=== PATIENT | female | born 1935 | race Caucasian/White ===

== ENCOUNTER 2020-09-03 16:27 | Emergency (ER) | payer MEDICARE, SELFPAY ==
[2020-09-03 17:14] VITALS: BP 146/72; PULSE 73; RESP 18; TEMP 36.7; O2SAT 97; BMI 27.4
--- NOTE | 2020-09-03 18:13 | XRR_ITS ---
PROCEDURE INFORMATION: Exam: XR Right Forearm Exam date and time: 09/03/2020 6:14 PM Age: 85 years old Clinical indication: Injury or trauma; Fall; Blunt trauma (contusions or hematomas); Arm, lower; Right; Additional info: Fall injury TECHNIQUE: Imaging protocol: XR Right forearm. Views: 2 views. COMPARISON: No relevant prior studies available. FINDINGS: Bones/joints: Subtle nondisplaced fracture of the distal radius. Proximal radius is intact. Ulna is intact. Soft tissues: Mild distal soft tissue swelling noted. XR/XR forearm RT 2V 36596 IMPRESSION: Subtle nondisplaced fracture of the distal radius. Please see XR wrist series from same date.
--- NOTE | 2020-09-03 18:13 | ED_ITS ---
HPI - Extremity Problem General: Chief complaint: Extremity Injury, Upper Stated complaint: FALL, INJURY TO R ARM Time Seen by Provider: 09/03/20 18:12 History of Present Illness: HPI Narrative: Patient is an 85-year-old female comes to the ED with injury after fall. Patient says on Friday evening she fell landing on her right arm and hitting her head. She says she just lost her balance and fell in her home. Denies any loss of consciousness but reports h aving a headache after fall. Her main complaint is her right wrist pain. She describes the pain as throbbing and aching and hurts whenever she rotates her right wrist. She rates it currently a 6 out of 10. She says she took 600 mg of ibuprofen several hours ago and took 1 dose of Tylenol about an hour prior to arrival. She is also complaining of having some burning pain when urinating. She reports having frequent UTIs. Associated symptoms: Deny chest pain, fever(s) or rash Review of Systems Const: Denies: fever(s), chills or fatigue Eyes: Denies: change in vision or eye discomfort ENMT: Denies: throat pain, odynophagia, nasal discharge or nasal congestion Card: Denies: chest pain, palpitations, edema, swelling of feet/ankles, dyspnea on exertion or orthopnea Resp: Denies: dyspnea, productive cough or non-productive cough GI: Denies: abdominal pain, nausea, vomiting, diarrhea, constipation or hematochezia : Reports: dysuria; Denies: flank pain or hematuria Musc: Reports: extremity pain (right wrist pain); Denies: neck pain, back pain or extremity swelling Skin/Breast: Denies: rash or new lesions Neuro: Denies: headache(s), numbness in extremities or weakness in extremities Physical Exam Const: COMMON NORMALS: no acute distress, patient oriented x3, healthy appearing and alert GENERAL APPEARANCE: cooperative and comfortable HENMT: COMMON NORMALS: normocephalic HEAD & SCALP: normocephalic MOUTH: Normal oral and palatal mucosa present THROAT: posterior oropharynx normal and uvula midline Neck/C-Spine: COMMON NORMALS: supple GENERAL: Yes normal visual inspection Resp: COMMON NORMALS: normal respiratory effort, No retractions, No use of accessory muscles and clear to auscultation bilaterally AUSCULTATION: clear to auscultation bilaterally Cardio: COMMON NORMALS: regular rate, regular rhythm, S1 normal heart sound present, S2 normal heart sound present, No gallops present (Cardio), No clicks present (Cardio), No murmurs present (Cardio) and Peripheral pulses 2+ throughout RATE: regular rate RHYTHM: regular rhythm HEART SOUNDS: S1 normal heart sound present and S2 normal heart sound present PERIPHERAL PULSES: Peripheral pulses 2+ throughout GI: COMMON NORMALS: Normal to inspection, nondistended, normoactive bowel sounds present, Soft to palpation, non-tender and no masses PALPATION: Yes Soft to palpation : COMMON NORMALS: Yes no CVA tenderness BLADDER/KIDNEY EXAM: Yes no CVA tenderness Back/Pelvis: COMMON NORMALS: no CVA tenderness Extremity: COMMON NORMALS: normal to inspection RIGHT UPPER EXTREMITY: Yes wrist Right wrist: Yes inspection (No visible deformity seen. No swelling or ecchymosis seen either.), Yes palpation (Tenderness to radial aspect of wrist.), Yes ROM (Limited external and internal rotation of wrist due to pain) and Yes neurovascular exam (Intact with with radial pulse 2+ patient) Neuro: COMMON NORMALS: patient oriented x3 and moves all extremities SENSORIUM/ORIENTATION: Yes alert Skin: COMMON NORMALS: no rashes or lesions noted GENERAL SKIN EXAM: no rashes or lesions noted and dry skin Course Vital Signs: Vital signs: Vital Signs Temperature 98.1 F 09/03/20 17:14 Pulse Rate 73 09/03/20 17:14 Respiratory Rate 18 09/03/20 17:14 Blood Pressure 146/72 09/03/20 17:14 Pulse Oximetry 97 09/03/20 17:14 MDM - Extremity (Nontraumatic) MDM Narrative: Medical decision making narrative: Patient is an 85-year-old female comes to the ED with right wrist pain after having a fall. Patient also complaining of having some dysuria. Patient's right wrist is neurovascular intact and she has some tenderness palpation over the radial aspect but no visible deformity seen. Right wrist x-ray shows distal radial head fracture. CT of head shows no acute findings. Patient diagnosed with a right wrist fracture and put in a sugar tong splint. Patient also was having some dysuria and UA showed UTI. I placed an order with case management patient to be seen by orthopedic doctor. Patient discharged home with a prescription of Bactrim and hydrocodone for pain. I told patient to keep splint on and dry and to limit use of right hand. I told her that case management will be contacting you in the next several days set up appoint with orthopedic doctor. Return ED precautions given. Patient understood and agree with plan. Lab Data: Attestation: I reviewed the patient's lab results. Labs: Lab Results 09/03/20 Range/Units 19:45 Urine Color Yellow (Yellow) Urine Appearance Sl hazy (CLEAR) Urine pH 5 (5-7) Ur Specific Gravit y 1.020 (1.005-1.030) Urine Protein Neg (Negative) Urine Glucose (UA) Norm (Normal) Urine Ketones Negative (Negative) Urine Blood Neg (Negative) Urine Nitrate Negative (Negative) Urine Bilirubin Neg (Negative) Urine Urobilinogen Norm (Negative) mg/dL Ur Leukocyte Renuka ase 2+ H (Negative) Urine RBC 0-4 H (0-2) /hpf Urine WBC >100 H (0-5) /hpf Ur Squamous Epith Cells 15-25 H (0-5) /hpf Amorphous Sediment 2+ /hpf Urine Bacteria 2+ H (NONE) /hpf Urine Mucus 1+ /hpf Imaging Data^: CT Head: Attestation: I personally reviewed and interpreted this imaging study as follows: Radiologist's impression: [address] [address] [address] Scan Report Signed Patient: Yoselin Lee Unit #: [id number] : 1935 Age/Sex: 85 / F ADM Date: 09/03/20 Loc: ER Room/Bed: Attending Dr: Ordering Provider/Ordering MD: Max Lopez Date of Service: 09/03/20 Procedure(s): CT head wo con* [id number] Accession Number(s): [id number] Report Number: [id number] PROCEDURE INFORMATION: Exam: CT Head Without Contrast Exam date and time: 09/03/2020 6:19 PM Age: 85 years old Clinical indication: Injury or trauma; Blunt trauma (contusions or hematomas); Without loss of consciousness; Patient HX: C/O backwards fall from standing 2 days ago denies loc; Additional info: Fall and hit head TECHNIQUE: Imaging protocol: Computed tomography of the head without contrast. Radiation optimization: All CT scans at this facility use at least one of these dose optimization techniques: automated exposure control; mA and/or kV adjustment per patient size (includes targeted exams where dose is matched to clinical indication); or iterative reconstruction. COMPARISON: No relevant prior studies available. RADIATION DOSE METRICS: Total DLP (mGy-cm): 724.94 FINDINGS: Brain: Moderate parenchymal volume loss noted. 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 No intracranial hemorrhage noted. No parenchymal edema identified. Cerebral ventricles: The ventricles are proportional to the sulci. No hydrocephalus is noted. Bones/joints: No fracture or other acute osseous abnormality. Paranasal sinuses: The paranasal sinuses, as demonstrated, appear clear. Mastoid air cells: The mastoid air cells are clear bilaterally. Soft tissues: The soft tissues appear unremarkable. CT/CT head wo con* [id number] IMPRESSION: No acute intracranial abnormality demonstrated. Radiation Dose CTDIVOL = (mGy): DLP = 724.94 (mGy-cm) Dictated By: Fred Aldana MD Signed By: Fred Aldana MD Signed Date/Time: 09/03/201905 DD/ 03 Xray Ortho: Attestation: I personally reviewed and interpreted this imaging study as follows: Radiologist's impression: [address] [address] XRay Report Signed Patient: Yoselin Lee Unit #: [id number] : 1935 Age/Sex: 85 / F ADM Date: 09/03/20 Loc: ER Room/Bed: Attending Dr: Ordering Provider/Ordering MD: Max Lopez Date of Service: 09/03/20 Procedure(s): XR wrist RT min 3V* 24565 Accession Number(s): [id number] Report Number: [id number] PROCEDURE INFORMATION: Exam: XR Right Wrist Exam date and time: 09/03/2020 6:14 PM Age: 85 years old Clinical indication: Injury or trauma; Fall; Blunt trauma (contusions or hematomas); Wrist; Right; Additional info: Fall injury TECHNIQUE: Imaging protocol: XR Right wrist. Views: 3 or more views. COMPARISON: No relevant prior studies available. FINDINGS: Bones/joints: Acute nondisplaced fracture of the distal radius demonstrated on the AP and lateral views. Degenerative changes of the 1st carpometacarpal joint. No widening of the joint spaces. Distal ulna is intact. Soft tissues: Soft tissue swelling is noted. Vasculature: There are atherosclerotic calcifications demonstrated. XR/XR wrist RT min 3V* [id number] IMPRESSION: 1. Acute nondisplaced fracture of the distal radius. 2. Soft tissue swelling is noted. Dictated By: Fred Aldana MD Signed By: Fred Aldana MD Signed Date/Time: 09/03/201919 DD/ 18 Discharge Plan Discharge Patient Disposition: Home Clinical Impression: Fracture of wrist Qualifiers: Encounter type: initial encounter Fracture type: closed Laterality: right Qualified Code(s): S62.101A - Fracture of unspecified carpal bone, right wrist, initial encounter for closed fracture Fall as cause of accidental injury at home as place of occurrence Qualifiers: Encounter type: initial encounter Qualified Code(s): W19.XXXA - Unspecified fall, initial encounter UTI (urinary tract infection) Qualifiers: Urinary tract infection type: acute cystitis Hematuria presence: with hematuria Qualified Code(s): N30.01 - Acute cystitis with hematuria Condition: Stable Prescriptions: New sulfamethoxazole-trimethoprim 800-160 mg tablet 1 tab PO BID 7 Days Qty: 14 RF: 0 Discharge Orders: Discharge ED (Routine); Ordered 09/03/20 Ordered By: Max Lopez Referrals: Austin Duke DO [Primary Care Provider] - Discharge Diet: Regular Discharge Activity: Limit activity as instructed Patient Instructions: Wrist Fracture in Adults (ED), Urinary Tract Infection in Women (ED), Opioid Safety Activity Restrictions/Additional Instructions: Follow-up with medical provider as directed. Case management will be contacting you in the next several days set up appoint with orthopedic doctor. Keep splint on and dry and limit activity with right arm. Take medications as prescribed. Return to the ER or your medical provider if condition worsens. Please read and understand discharge instructions. If any questions, please ask. Coding Level of Care Code ED Coding Quality Analyst for Jana Fwd Exam Comprehensive
--- NOTE | 2020-09-03 18:18 | CTR_ITS ---
PROCEDURE INFORMATION: Exam: CT Head Without Contrast Exam date and time: 09/03/2020 6:19 PM Age: 85 years old Clinical indication: Injury or trauma; Blunt trauma (contusions or hematomas); Without loss of consciousness; Patient HX: C/O backwards fall from standing 2 days ago denies loc; Additional info: Fall and hit head TECHNIQUE: Imaging protocol: Computed tomography of the head without contrast. Radiation optimization: All CT scans at this facility use at least one of these dose optimization techniques: automated exposure control; mA and/or kV adjustment per patient size (includes targeted exams where dose is matched to clinical indication); or iterative reconstruction. COMPARISON: No relevant prior studies available. RADIATION DOSE METRICS: Total DLP (mGy-cm): 724.94 FINDINGS: Brain: Moderate parenchymal volume loss noted. 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 No intracranial hemorrhage noted. No parenchymal edema identified. Cerebral ventricles: The ventricles are proportional to the sulci. No hydrocephalus is noted. Bones/joints: No fracture or other acute osseous abnormality. Paranasal sinuses: The paranasal sinuses, as demonstrated, appear clear. Mastoid air cells: The mastoid air cells are clear bilaterally. Soft tissues: The soft tissues appear unremarkable. CT/CT head wo con* [id number] IMPRESSION: No acute intracranial abnormality demonstrated. Radiation Dose CTDIVOL = (mGy): DLP = 724.94 (mGy-cm)
[2020-09-03] MEDS: HYDROcodone-acetaminophen 5-325 mg Tablet 1 TAB PO (18:29)
[2020-09-03 20:29] LABS: Bilirubin Urine Neg (Negative); Blood Urine Neg (Negative); Glucose Urine UA Norm (Normal); Ketones Urine Negative (Negative); Leukocyte Esterase Urine 2+ (Negative); Nitrate Urine Negative (Negative); Protein Urine Neg (Negative); Urine Appearance SL Hazy (CLEAR); Urine Color Yellow (Yellow); Urobilinogen Urine Norm (Negative); pH Urine 5 (5-7)
[2020-09-03 20:30] LABS: RBC Urine 0-4 /hpf (0-2); Squamous Epithelial Cell Urine 15-25 /hpf (0-5); WBC Urine >100 /hpf (0-5)
[2020-09-03 20:31] LABS: Add Urine Culture? No; Amorphous Sediment Urine 2+ /hpf; Bacteria Urine 2+ /hpf; Mucus Urine 1+ /hpf
[2020-09-03] MEDS: HYDROcodone-acetaminophen 5-325 mg Tablet 2 TAB PO (20:51)
[2020-09-03] MEDS: sulfamethoxazole-trimeth DS 160-800 mg Tablet 1 TAB PO (20:51)
--- NOTE | 2020-09-04 09:55 | DCPLANNER ---
manager shop had message to schedule a follow up appointment for patient with orhto. manager shop called the ortho clinic, spoke with Barbie, gave clinic patients information. manager shop was told that patients information would be printed and reviewed. Clinic will call patient with appointment information.
--- NOTE | 2020-09-06 07:44 | DCPLANNER ---
Patient has a follow up appointment scheduled for , September 07, 2020 at 3:[address] Delgado at [facility]. Clinic will call patient with appointment information.
--- NOTE | 2020-09-06 11:20 | PC.NURSE ---
sugar tong splint applied per Bean Cevallos RN. Patient had good circulatory and capillary refill after placement of splint.
--- NOTE | 2020-10-20 08:12 | DCPLANNER ---
Patient had a follow up appointment scheduled for 09.07.[address] Delgado at [facility] - patient did attend appointment.
== END 2020-09-03 20:56 | disposition home or self-care (01) ==
PROVIDERS: Emergency Provider Physician Assistant; PCP Family Medicine
DX: S52.501A Unspecified fracture of the lower end of right radius, initial encounter for closed fracture (principal); N30.01 Acute cystitis with hematuria; W19.XXXA Unspecified fall, initial encounter
CPT/HCPCS: 29125; 70450; 73090; 73110; 81001; 99283

== ENCOUNTER → 2020-09-07 15:42 | Outpatient (BNVA) | payer MEDICARE, SELFPAY | PROVIDERS: PCP Family Medicine; Referring Provider Physician Assistant; Visit Provider Orthopaedic Surgery | DX: S62.101A Fracture of unspecified carpal bone, right wrist, initial encounter for closed fracture (principal); S52.501A Unspecified fracture of the lower end of right radius, initial encounter for closed fracture; W19.XXXA Unspecified fall, initial encounter | CPT/HCPCS: 73110 ==

== ENCOUNTER 2020-09-28 07:46 | Outpatient (CLI) | payer MEDICARE, SELFPAY ==
--- NOTE | 2020-09-28 07:56 | US_ITS ---
WS: [id number] Thyroid ultrasound, 09/28/2020 Clinical Data: THYROID NODULE Comparison: None. Findings: The right lobe of thyroid measures 3.4 cm x 1.5 cm x 1.8 cm. There are 2 small nodules in the right l obe, one measuring 0.28 x 0.34 x 0.4 cm and the other 0.27 x 0.42 x 0.47 cm. The left lobe measures 5.0 cm x 1.3 cm x 1.6 cm. There are 2 complex nodules with mixed echotexture i n the left lobe, one measuring 0.82 x 1.36 x 1.92 cm and the other 0.97 x 0.99 x 1.04 cm The isthmus measured 0.3 mm. The echotexture of the right lobe is uniform with 2 small nodules. There is mixed echotexture on the left with 2 large nodules. US/US thyroid 13544 Impression: 1. Multinodular goiter. 2. 2 small nodules on the right lobe. 3. 2 large nodules on the left lobe.
== END 2020-09-28 07:47 | disposition home or self-care (01) ==
LOC: RAD 07:48
PROVIDERS: PCP Family Medicine; Visit Provider Family Medicine
DX: E04.2 Nontoxic multinodular goiter (principal)
CPT/HCPCS: 73110; 76536

== ENCOUNTER 2020-10-06 18:00 | Emergency (ER) | payer MEDICARE, SELFPAY ==
--- NOTE | 2020-10-06 18:04 | XRR_ITS ---
PROCEDURE INFORMATION: Exam: XR Left Knee Exam date and time: 10/06/2020 6:18 PM Age: 85 years old Clinical indication: Pain; Knee; Left; Additional info: Injury TECHNIQUE: Imaging protocol: XR Left knee. Views: 3 views. COMPARISON: No relevant prior studies available. FINDINGS: There is osteopenia. No fractures are identified. The joint spaces are well maintained. There is some spurring along the patella. There is a small joint effusion. Vascular calcifications are noted. XR/XR knee LT 3V* [id number] IMPRESSION: 1. No evidence of fracture. 2. Small joint effusion.
[2020-10-06 18:19] VITALS: BP 133/66; PULSE 74; RESP 16; TEMP 36.5; O2SAT 96; BMI 27.4
--- NOTE | 2020-10-06 18:35 | W.ED.LOWEXIN ---
HPI - Extremity Injury (Lower) General: Chief Complaint: Extremity Injury, Lower Stated Complaint: LEFT KNEE WENT OUT Time Seen by Provider: 10/06/20 18:25 Source: patient Mode of arrival: wheelchair Limitations: no limitations History of Present Illness: HPI Narrative: Patient is an 85-year-old female who presents to ED today with a complaint of left knee pain. Patient tells me she was walking and states the knee buckled causing her to almost fall. She states she was still able to ambulate on the extremity but only by keeping it straight and not bending the knee. She denies any other injuries at this time. Upon my initial assessment patient tells me the knee feels better and she is now able to bend it without any discomfort. She tells me after the initial buckling she felt like her kneecap was dislocated but that it must of popped back in . complaint: knee injury Onset (ago): hour(s) Place: home Severity: mild Associated symptoms: Reports no associated symptoms Other symptoms: none Review of Systems Musc: Reports: joint pain (L knee); Denies: extremity pain, extremity swelling, joint swelling or limited range of motion Neuro: Denies: numbness in extremities or sensory changes Physical Exam Const: COMMON NORMALS: no acute distress, average body habitus, patient oriented x3, no limitations, healthy appearing, alert and well nourished GENERAL APPEARANCE: cooperative ORIENTATION/CONSCIOUSNESS: Yes awake, Yes oriented to person, Yes oriented to place and Yes oriented to time HENMT: COMMON NORMALS: normocephalic and atraumatic HEAD & SCALP: normocephalic and atraumatic Extremity: COMMON NORMALS: full ROM NARRATIVE EXTREMITY EXAM: pt has full painless ROM of her L knee; there is no obvious swelling; no patellar dislocation GENERAL: Yes normal exam except as noted Neuro: COMMON NORMALS: patient oriented x3, moves all extremities, no focal motor deficits and no sensory deficits noted SENSORIUM/ORIENTATION: Yes alert, Yes oriented to person, Yes oriented to place and Yes oriented to time Skin: COMMON NORMALS: no rashes or lesions noted GENERAL SKIN EXAM: no rashes or lesions noted TRAUMA: no lacerations or abrasions Course Vital Signs: Vital signs: Vital Signs Temperature 97.7 F 10/06/20 18:19 Pulse Rate 74 10/06/20 18:19 Respiratory Rate 16 10/06/20 18:19 Blood Pressure 133/66 10/06/20 18:19 Pulse Oximetry 96 10/06/20 18:19 MDM - Extremity Injury (Lower) MDM Narrative: Medical decision making narrative: Patient was able to ambulate in the ED with a walker. She states she has a walker and cane at home she will use. Recommend followup with PCP if knee continues to bother her so they can evaluate further. Imaging Data^: XR L knee: Radiologist's impression: [address] [address] XRay Report Signed Patient: Yoselin Lee Unit #: [id number] : 1935 Age/Sex: 85 / F ADM Date: 10/06/20 Loc: ER Room/Bed: Attending Dr: Ordering Provider/Ordering MD: Katherine Scott MD Date of Service: 10/06/20 Procedure(s): XR knee LT 3V* [id number] Accession Number(s): [id number] Report Number: [id number] PROCEDURE INFORMATION: Exam: XR Left Knee Exam date and time: 10/06/2020 6:18 PM Age: 85 years old Clinical indication: Pain; Knee; Left; Additional info: Injury TECHNIQUE: Imaging protocol: XR Left knee. Views: 3 views. COMPARISON: No relevant prior studies available. FINDINGS: There is osteopenia. No fractures are identified. The joint spaces are well maintained. There is some spurring along the patella. There is a small joint effusion. Vascular calcifications are noted. XR/XR knee LT 3V* [id number] IMPRESSION: 1. No evidence of fracture. 2. Small joint effusion. Dictated By: Isidro Terrell MD Signed By: Isidro Terrell MD Signed Date/Time: 10/06/201902 DD/ 00 Discharge Plan Discharge Patient Disposition: Home Clinical Impression: Knee buckling Qualifiers: Laterality: left Qualified Code(s): M25.362 - Other instability, left knee Condition: Stable Prescriptions: No Action (DME) Thumb spica splint See Rx Instructions .Route .MEDSULY Qty: 1 RF: 0 Discharge Orders: Discharge ED (Routine); Ordered 10/06/20 Ordered By: Flakita Reina Referrals: Austin Duke, DO [Primary Care Provider] - Activity Restrictions/Additional Instructions: As we discussed keep the RODERICK wrap on the knee joint to help stabilize. You need to walk with a walker or a cane at all times to help prevent falls in case the knee janna again. Your x-ray was negative here however I would like you to follow-up with primary care next week so they can further evaluate. If knee continues to buckle you may require a MRI to evaluate further. Coding Level of Care Code ED Barrel Rifler Broach for Jana Madison
--- NOTE | 2020-12-11 07:59 | DCPLANNER ---
Patient had a follow up appointment 10.19.[address] Delgado at ortho - patient did attend appointment.
== END 2020-10-06 19:13 | disposition home or self-care (01) ==
PROVIDERS: Emergency Provider Physician Assistant; PCP Family Medicine
DX: M25.362 Other instability, left knee (principal)
CPT/HCPCS: 73562; 99283

== ENCOUNTER 2020-10-06 21:15 | Emergency (ER) | payer MEDICARE, SELFPAY ==
[2020-10-06 21:06] VITALS: BP 153/77; PULSE 60; RESP 16; TEMP 36.8; O2SAT 97; BMI 28.3
--- NOTE | 2020-10-06 21:15 | ED_ITS ---
HPI - Extremity Problem General: Chief complaint: Extremity Injury, Lower Stated complaint: KNEE PAIN Source: patient Mode of arrival: EMS Limitations: no limitations History of Present Illness: HPI Narrative: Patient is an 85-year-old female who returns to the ED today again for complaints of left knee pain. Patient was seen just a few hours ago by myself. Following the end of her visit she was able to ambulate in the ED with a walker without difficulty. She had stated her pain was much improved. Her XR was normal. She states when she got home she tried to get out of the vehicle and felt like her knee dislocated and buckled again. She did not fall. She is currently complaining of anterior knee pain and is not able to bend the knee. MD Complaint: joint pain Pain Consistency: intermittent Location: left and lower extremity Radiation: none Relieving factors: immobilization Exacerbating factors: range of motion, weight bearing and walking Associated symptoms: Reports no associated symptoms Review of Systems Musc: Reports: joint pain (L knee) and limited range of motion; Denies: extremity pain, extremity swelling or joint swelling Neuro: Denies: numbness in extremities, weakness in extremities or sensory changes Physical Exam Const: COMMON NORMALS: no acute distress, average body habitus, patient oriented x3, no limitations, healthy appearing, alert and well nourished GENERAL APPEARANCE: cooperative Extremity: OTHER: TTP anterior/medial L knee; again no swelling appreciated; patella does not appear dislocated; she has severe pain with trying to bend her knee; no redness/warmth present Neuro: COMMON NORMALS: patient oriented x3 SENSORIUM/ORIENTATION: Yes alert Course Vital Signs: Vital signs: Vital Signs Temperature 98.3 F 10/06/20 21:06 Pulse Rate 64 10/07/20 00:58 Respiratory Rate 18 10/07/20 00:58 Blood Pressure 153/77 10/06/20 21:06 Pulse Oximetry 98 10/07/20 00:58 MDM - Extremity (Nontraumatic) MDM Narrative: Medical decision making narrative: Again XR is negative. Spoke about possibility of MRI as an outpt to evaluate for joint laxity/internal injury. Will place in knee immobilizer and have her follow up with orthopedics. Family is very concerned regarding patient taking care of herself as she lives alone. I have placed her in a knee immobilizer and we were able to ambulate her here with a walker however this was difficult. I too feel patient cannot care for herself secondary to the pain she is having now compared to her previous visit. She has not had any recent injury or trauma. I do not think obtaining CT imaging would change anything. Granddaughter, daughter, and aunt are in the room. Discussed possibly admitting patient for a pain control and inability to care for self but stated they would unlikely keep her for 3 midnights thus insurance would not pay for a snf stay following. Patient and family agree this would most likely not be beneficial. Daughter and aunt have stairs in their home and they do not think they can get her up stairs. Granddaughter states her home does not have stairs and is wheelchair accessible. Family is in agreement that patient will stay with granddaughter. We will have HOME bring a walker and bedside commode. Plan is for patient to follow-up with orthopedics or PCP-whichever when she can get into first. She does have an appoint with Dr. Delgado next week. She states she has pain medications at home she can use. Imaging Data^: XR L knee: Radiologist's impression: [facility] [place] [address] XRay Report Signed Patient: Yoselin Lee Unit #: [id number] : 1935 Acct#:[id number] Age/Sex: 85 / F ADM Date: 10/06/20 Loc: ER Room/Bed: Attending Dr: Ordering Provider/Ordering MD: Flakita Reina Date of Service: 10/06/20 Procedure(s): XR knee LT 3V* [id number] Accession Number(s): [id number] Report Number: [id number] PROCEDURE INFORMATION: Exam: XR Left Knee Exam date and time: 10/06/2020 9:30 PM Age: 85 years old Clinical indication: Patient HX: C/O pain left knee severe at patella. Cannot bend; Additional info: Injury TECHNIQUE: Imaging protocol: XR Left knee. Views: 3 views. COMPARISON: CR (LOW EXM, ) 10/06/2020 6:30 PM FINDINGS: Again, no fractures are identified. There is a small joint effusion. The patellar tendon appears intact. There is no acute bony destruction. Vascular calcifications are noted. XR/XR knee LT 3V* [id number] IMPRESSION: No evidence of fracture. Small joint effusion. One may wish to consider CT in further evaluation. Dictated By: Isidro Terrell MD Signed By: Isidro Terrell MD Signed Date/Time: 10/06/202203 DD/ 01 Discharge Plan Discharge Patient Disposition: Home Clinical Impression: Acute pain of left knee Condition: Stable Prescriptions: No Action (DME) Thumb spica splint See Rx Instructions .Route .MEDSUPPLY Qty: 1 RF: 0 Discharge Orders: Discharge ED (Routine); Ordered 10/06/20 Ordered By: Flakita Reina Referrals: Austin Duke DO [Primary Care Provider] - Coding Level of Care Code ED Control Electrician for Chg Fwd Exam Problem Focused
[2020-10-06 21:19] VITALS: RESP 15; O2SAT 96
[2020-10-06] MEDS: morphine 4 mg/mL SDV 1 mL IM ×2 (21:19→23:58)
--- NOTE | 2020-10-06 21:29 | XRR_ITS ---
PROCEDURE INFORMATION: Exam: XR Left Knee Exam date and time: 10/06/2020 9:30 PM Age: 85 years old Clinical indication: Patient HX: C/O pain left knee severe at patella. Cannot bend; Additional info: Injury TECHNIQUE: Imaging protocol: XR Left knee. Views: 3 views. COMPARISON: CR (LOW EXM, ) 10/06/2020 6:30 PM FINDINGS: Again, no fractures are identified. There is a small joint effusion. The patellar tendon appears intact. There is no acute bony destruction. Vascular calcifications are noted. XR/XR knee LT 3V* [id number] IMPRESSION: No evidence of fracture. Small joint effusion. One may wish to consider CT in further evaluation.
[2020-10-06 23:58] VITALS: RESP 20
[2020-10-06] MEDS: dexamethasone 10 mg/mL INJ 8 MG IM (23:59)
[2020-10-07 00:44] VITALS: PULSE 64; RESP 18; O2SAT 98
[2020-10-07 00:58] VITALS: PULSE 64; RESP 18; O2SAT 98
--- NOTE | 2020-10-09 09:05 | DCPLANNER ---
advertising account manager had message to schedule a follow up appointment for patient with ortho for knee pain. advertising account manager called the ortho clinic, spoke with Yasemin, gave clinic patients information. advertising account manager was told that patients information would be printed and reviewed. Clinic will call patient with appointment information.
--- NOTE | 2020-10-10 07:51 | DCPLANNER ---
Patient has a follow up appointment scheduled for September at 2:[address] Delgado at [facility]. Clinic will call patient with appointment information.
== END 2020-10-07 00:59 | disposition home or self-care (01) ==
PROVIDERS: Emergency Provider Physician Assistant; PCP Family Medicine
DX: M25.562 Pain in left knee (principal)
CPT/HCPCS: 29530; 73562; 96372; 99283; J1100; J2270

== ENCOUNTER → 2020-10-19 15:25 | Outpatient (BNVA) | payer MEDICARE, SELFPAY | PROVIDERS: PCP Family Medicine; Visit Provider Orthopaedic Surgery | DX: S62.101A Fracture of unspecified carpal bone, right wrist, initial encounter for closed fracture (principal); X58.XXXA Exposure to other specified factors, initial encounter | CPT/HCPCS: 73110 ==

== ENCOUNTER → 2021-02-01 11:42 | Outpatient (BNVA) | payer MEDICARE, SELFPAY | PROVIDERS: PCP Family Medicine; Visit Provider Specialist | DX: M25.562 Pain in left knee (principal) | CPT/HCPCS: 73560; 73565 ==

== ENCOUNTER → 2021-09-12 14:16 | Outpatient (BNVA) | payer MEDICARE, SELFPAY | PROVIDERS: PCP Family Medicine; Visit Provider Specialist | DX: V89.2XXA Person injured in unspecified motor-vehicle accident, traffic, initial encounter (principal); S83.412A Sprain of medial collateral ligament of left knee, initial encounter; M17.12 Unilateral primary osteoarthritis, left knee | CPT/HCPCS: 73560; 73565; 99213 ==

== ENCOUNTER 2021-12-17 12:00 | Emergency (ER) | payer MEDICARE, SELFPAY ==
[2021-12-17] VITALS (14 sets, daily range): BP systolic 126–153; BP diastolic 60–93; PULSE 65–83; RESP 16–22; TEMP 36.8; O2SAT 89–99; BMI 28.3
--- NOTE | 2021-12-17 14:53 | ED_ITS ---
Documented by User: José Antonio Carnes DO 12/18/21 06:19 HPI - Abdominal Pain General: Chief Complaint: Abdominal Pain Stated Complaint: right side abd/back pain Time Seen by Provider: 12/17/21 14:40 Source: patient Mode of arrival: ambulatory Limitations: no limitations History of Present Illness: 86 yo female presents emergency room with complaint of right-sided flank pain into the right lower quadrant pain is progressively worsened. She not had any hematuria she has had a little mild dysuria's been accompanied by pain and nausea. She states she also been very constipated lately. She not had any fever sweats or chills. MD elicited complaint: abdominal pain Pertinent past history: none Onset (ago): hour(s) Quality: cramping Radiation: none Exacerbating factors: nothing Relieving factors: nothing Associated Symptoms: Denies anorexia, belching, bloating, change in bowel habits, change in stool character, chills, coffee ground emesis, constipation, GI cramping, diarrhea, dyspepsia, dysuria, excessive flatus, fever(s), heartburn, hematochezia, hematuria, hematemesis, fecal incontinence, loose stools, melena, nausea, poor appetite, syncope and vomiting Review of Systems Const: Reports: fatigue; Denies: fever(s) or chills ENMT: Reports: ear or mastoid pain; Denies: throat pain, ear discharge, nasal discharge or nasal congestion Card: Denies: syncope Resp: Denies: dyspnea, productive cough or non-productive cough GI: Denies: nausea, vomiting, hematemesis, coffee ground emesis, heartburn, diarrhea, constipation, bloating, GI cramping, belching, excessive flatus, fecal incontinence, change in bowel habits, change in stool character, hematochezia or melena : Reports: flank pain; Denies: difficulty voiding, dysuria, urinary frequency, urinary urgency or hematuria Musc: Reports: back pain Skin/Breast: Denies: rash or pruritus [facility] ED PFSH: Medical History (Updated 12/18/21 @ 06:19 by José Antonio Carnes DO) Osteoarthritis Right wrist fracture Social History (Updated 12/18/21 @ 06:16 by José Antonio Carnes DO) Smoking and tobacco status: never smoked Alcohol intake: never Physical Exam Const: COMMON NORMALS: no acute distress GENERAL APPEARANCE: cooperative and comfortable ORIENTATION/CONSCIOUSNESS: Yes awake, Yes oriented to person, Yes oriented to place and Yes oriented to time HENMT: COMMON NORMALS: normocephalic, atraumatic and hearing grossly normal bilaterally HEAD & SCALP: normocephalic and atraumatic Neck/C-Spine: COMMON NORMALS: no JVD Resp: COMMON NORMALS: normal respiratory effort, No retractions, No use of accessory muscles and clear to auscultation bilaterally AUSCULTATION: clear to auscultation bilaterally Cardio: COMMON NORMALS: no JVD, regular rate, regular rhythm and No murmurs present (Cardio) RATE: regular rate RHYTHM: regular rhythm GI: COMMON NORMALS: No hepatosplenomegaly present AUSCULTATION: Yes normoactive bowel sounds PALPATION: Yes Tenderness to palpation present (GI) Details: RLQ, No Guarding due to palpation present (GI) and Yes No hepatosplenomegaly present : BLADDER/KIDNEY EXAM: Yes CVA tenderness Back/Pelvis: GENERAL BACK: Yes CVA tenderness CVA tenderness: right Extremity: COMMON NORMALS: normal to inspection, capillary refill normal, no clubbing, cyanosis or edema, no calf tenderness and no pedal edema Neuro: SENSORIUM/ORIENTATION: Yes oriented to person, Yes oriented to place and Yes oriented to time Skin: COMMON NORMALS: no rashes or lesions noted GENERAL SKIN EXAM: no rashes or lesions noted Course Vital Signs: Vital signs: Vital Signs Temperature 98.2 F 12/17/21 12:36 Pulse Rate 83 12/17/21 21:07 Respiratory Rate 22 H 12/17/21 19:58 Blood Pressure 136/68 12/17/21 21:07 Pulse Oximetry 96 12/17/21 21:07 MDM - Abdominal Pain Medical Decision Making Labs completed and CT completed at change of shift patient is going to need to be transferred she has an obstructive mass in the left ureter by CT read either a clot or a soft tissue mass. We do not have urology services available at this time Dr. Scott will assume care and make arrangements for transfer to definitive care Patient presents here with a cystitis patient CT also shows ureteral obstruction with hydronephrosis they did not see a stone. Did speak to urology at [place] and will transfer there for higher level of care for urologic capability. Patient has no signs of sepsis here. Medical Records I reviewed the patient's medical records. Lab Data I reviewed the patient's lab results. : 12/17/21 15:10 12/17/21 15:10 Labs/Radiology: Radiology Impressions Abdomen/Pelvis CT 12/17/21 14:59 IMPRESSION: 1. Moderate-severe right hydronephrosis with columning of the ureter to the mid pelvis. There is hyperdensity in the distal obstructed ureter but no visible calculus. This could represent a blood clot or an obstructing neoplastic process. Follow-up with a retrograde pyelogram is recommended. 2. 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 For patients without history of cancer, recommend follow-up MRI in 6-12 months. With history of cancer, recommend evaluation with non-emergent PET vs. MRI vs. biopsy. 3. Cholelithiasis. Laboratory Results WBC 9.8 10^3/uL (4.0-10.0) 12/17/21 15:10 RBC 4.63 10^6/uL (4.1-5.3) 12/17/21 15:10 Hgb 13.8 g/dL (11.5-15.3) 12/17/21 15:10 Hct 43.4 % (37.0-47.0) 12/17/21 15:10 MCV 93.7 fl (81-99) 12/17/21 15:10 MCH 29.8 pg (28.0-34.0) 12/17/21 15:10 MCHC 31.8 g/dL (30.0-36.0) 12/17/21 15:10 RDW 13.1 % (12.1-15.1) 12/17/21 15:10 Plt Count 148 10^3/cmm (130-400) 12/17/21 15:10 MPV 10.8 fL (7.4-10.4) H 12/17/21 15:10 Neut % (Auto) 82.9 % 12/17/21 15:10 Lymph % (Auto) 8.4 % 12/17/21 15:10 [place] % (Auto) 7.4 % 12/17/21 15:10 Eos % (Auto) 0.3 % 12/17/21 15:10 Baso % (Auto) 0.6 % 12/17/21 15:10 Neut # (Auto) 8.14 10^3/uL (1.8-7.7) H 12/17/21 15:10 Lymph # (Auto) 0.8 10^3/uL (0.8-4.8) 12/17/21 15:10 [place] # (Auto) 0.7 10^3/uL (0.2-0.9) 12/17/21 15:10 Eos # (Auto) 0.0 10^3/uL (0.0-0.8) 12/17/21 15:10 Baso # (Auto) 0.1 10^3/uL (0.0-0.1) 12/17/21 15:10 Nucleated RBC % (auto) 0 % 12/17/21 15:10 Nucleated RBCs # 0.0 /100WBC 12/17/21 15:10 Sodium 136 mmol/L (136-145) 12/17/21 15:10 Potassium 4.5 mmol/L (3.5-5.1) 12/17/21 15:10 Chloride 101 mmol/L (98-107) 12/17/21 15:10 Carbon Dioxide 24 mmol/L (22-29) 12/17/21 15:10 Anion Gap 15.5 (5-19) 12/17/21 15:10 BUN 13 mg/dL (8-23) 12/17/21 15:10 Creatinine 0.4 mg/dL (0.5-0.9) L 12/17/21 15:10 GFR Calculation Not Reportable 12/17/21 15:10 Glucose 129 mg/dL (65-115) H 12/17/21 15:10 Calculated Osmolality 284 mOsm/kg (285-295) L 12/17/21 15:10 Calcium 8.8 mg/dL (8.5-10.5) 12/17/21 15:10 Total Bilirubin 0.3 mg/dL (0.15-1.2) 12/17/21 15:10 AST 18 U/L (0-32) 12/17/21 15:10 ALT 11 U/L (0-33) 12/17/21 15:10 Alkaline Phosphatase 88 IU/L (35-105) 12/17/21 15:10 Total Protein 6.2 g/dL (6.6-8.7) L 12/17/21 15:10 Albumin 4.1 g/dL (3.5-5.2) 12/17/21 15:10 Globulin 2.1 g/dL (1.3-4.6) 12/17/21 15:10 Lipase 44 U/L (13-60) 12/17/21 15:10 Urine Color Yellow (Yellow) 12/17/21 14:40 Urine Appearance Cloudy (CLEAR) 12/17/21 14:40 Urine pH 5 (5-7) 12/17/21 14:40 Ur Specific [place] 1.015 (1.005-1.030) 12/17/21 14:40 Urine Protein Neg (Negative) 12/17/21 14:40 Urine Glucose (UA) Norm (Normal) 12/17/21 14:40 Urine Ketones Negative (Negative) 12/17/21 14:40 Urine Blood 2+ (Negative) H 12/17/21 14:40 Urine Nitrate Positive (Negative) H 12/17/21 14:40 Urine Bilirubin Neg (Negative) 12/17/21 14:40 Urine Urobilinogen Norm mg/dL (Negative) 12/17/21 14:40 Ur Leukocyte Esterase 2+ (Negative) H 12/17/21 14:40 Urine RBC 15-25 /hpf (0-2) H 12/17/21 14:40 Urine WBC >100 /hpf (0-5) H 12/17/21 14:40 Ur Squamous Epith Cells 5-10 /hpf (0-5) H 12/17/21 14:40 Amorphous Sediment Not Reportable 12/17/21 14:40 Urine Bacteria 2+ /hpf (NONE) H 12/17/21 14:40 Discharge Plan Discharge Patient Disposition: Xfer Short-Term Hosp Clinical Impression: Acute cystitis, Hydronephrosis, Intrinsic ureteral obstruction Condition: Stable Referrals: Austin Duke, [Primary Care Provider] - Coding Level of Care Code ED Asset Administrator for Chg Fwd Documented by User: Katherine Scott MD 12/17/21 18:59 HPI - Abdominal Pain General: Chief Complaint: Abdominal Pain Stated Complaint: right side abd/back pain Time Seen by Provider: 12/17/21 14:40 PFS ED PFSH: Medical History (Updated 12/18/21 @ 06:19 by José Antonio Carnes DO) Osteoarthritis Right wrist fracture Social History (Updated 12/18/21 @ 06:16 by José Antonio Carnes DO) Smoking and tobacco status: never smoked Alcohol intake: never Course Vital Signs: Vital signs: Vital Signs Temperature 98.2 F 12/17/21 12:36 Pulse Rate 83 12/17/21 21:07 Respiratory Rate 22 H 12/17/21 19:58 Blood Pressure 136/68 12/17/21 21:07 Pulse Oximetry 96 12/17/21 21:07 MDM - Abdominal Pain Medical Decision Making Patient presents here with a cystitis patient CT also shows ureteral obstruction with hydronephrosis they did not see a stone. Did speak to urology at [place] and will transfer there for higher level of care for urologic capability. Patient has no signs of sepsis here. Lab Data : 12/17/21 15:10 12/17/21 15:10 Labs/Radiology: Radiology Impressions Abdomen/Pelvis CT 12/17/21 14:59 IMPRESSION: 1. Moderate-severe right hydronephrosis with columning of the ureter to the mid pelvis. There is hyperdensity in the distal obstructed ureter but no visible calculus. This could represent a blood clot or an obstructing neoplastic process. Follow-up with a retrograde pyelogram is recommended. 2. 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 For patients without history of cancer, recommend follow-up MRI in 6-12 months. With history of cancer, recommend evaluation with non-emergent PET vs. MRI vs. biopsy. 3. Cholelithiasis. Laboratory Results WBC 9.8 10^3/uL (4.0-10.0) 12/17/21 15:10 RBC 4.63 10^6/uL (4.1-5.3) 12/17/21 15:10 Hgb 13.8 g/dL (11.5-15.3) 12/17/21 15:10 Hct 43.4 % (37.0-47.0) 12/17/21 15:10 MCV 93.7 fl (81-99) 12/17/21 15:10 MCH 29.8 pg (28.0-34.0) 12/17/21 15:10 MCHC 31.8 g/dL (30.0-36.0) 12/17/21 15:10 RDW 13.1 % (12.1-15.1) 12/17/21 15:10 Plt Count 148 10^3/cmm (130-400) 12/17/21 15:10 MPV 10.8 fL (7.4-10.4) H 12/17/21 15:10 Neut % (Auto) 82.9 % 12/17/21 15:10 Lymph % (Auto) 8.4 % 12/17/21 15:10 [place] % (Auto) 7.4 % 12/17/21 15:10 Eos % (Auto) 0.3 % 12/17/21 15:10 Baso % (Auto) 0.6 % 12/17/21 15:10 Neut # (Auto) 8.14 10^3/uL (1.8-7.7) H 12/17/21 15:10 Lymph # (Auto) 0.8 10^3/uL (0.8-4.8) 12/17/21 15:10 [place] # (Auto) 0.7 10^3/uL (0.2-0.9) 12/17/21 15:10 Eos # (Auto) 0.0 10^3/uL (0.0-0.8) 12/17/21 15:10 Baso # (Auto) 0.1 10^3/uL (0.0-0.1) 12/17/21 15:10 Nucleated RBC % (auto) 0 % 12/17/21 15:10 Nucleated RBCs # 0.0 /100WBC 12/17/21 15:10 Sodium 136 mmol/L (136-145) 12/17/21 15:10 Potassium 4.5 mmol/L (3.5-5.1) 12/17/21 15:10 Chloride 101 mmol/L (98-107) 12/17/21 15:10 Carbon Dioxide 24 mmol/L (22-29) 12/17/21 15:10 Anion Gap 15.5 (5-19) 12/17/21 15:10 BUN 13 mg/dL (8-23) 12/17/21 15:10 Creatinine 0.4 mg/dL (0.5-0.9) L 12/17/21 15:10 GFR Calculation Not Reportable 12/17/21 15:10 Glucose 129 mg/dL (65-115) H 12/17/21 15:10 Calculated Osmolality 284 mOsm/kg (285-295) L 12/17/21 15:10 Calcium 8.8 mg/dL (8.5-10.5) 12/17/21 15:10 Total Bilirubin 0.3 mg/dL (0.15-1.2) 12/17/21 15:10 AST 18 U/L (0-32) 12/17/21 15:10 ALT 11 U/L (0-33) 12/17/21 15:10 Alkaline Phosphatase 88 IU/L (35-105) 12/17/21 15:10 Total Protein 6.2 g/dL (6.6-8.7) L 12/17/21 15:10 Albumin 4.1 g/dL (3.5-5.2) 12/17/21 15:10 Globulin 2.1 g/dL (1.3-4.6) 12/17/21 15:10 Lipase 44 U/L (13-60) 12/17/21 15:10 Urine Color Yellow (Yellow) 12/17/21 14:40 Urine Appearance Cloudy (CLEAR) 12/17/21 14:40 Urine pH 5 (5-7) 12/17/21 14:40 Ur Specific [place] 1.015 (1.005-1.030) 12/17/21 14:40 Urine Protein Neg (Negative) 12/17/21 14:40 Urine Glucose (UA) Norm (Normal) 12/17/21 14:40 Urine Ketones Negative (Negative) 12/17/21 14:40 Urine Blood 2+ (Negative) H 12/17/21 14:40 Urine Nitrate Positive (Negative) H 12/17/21 14:40 Urine Bilirubin Neg (Negative) 12/17/21 14:40 Urine Urobilinogen Norm mg/dL (Negative) 12/17/21 14:40 Ur Leukocyte Esterase 2+ (Negative) H 12/17/21 14:40 Urine RBC 15-25 /hpf (0-2) H 12/17/21 14:40 Urine WBC >100 /hpf (0-5) H 12/17/21 14:40 Ur Squamous Epith Cells 5-10 /hpf (0-5) H 12/17/21 14:40 Amorphous Sediment Not Reportable 12/17/21 14:40 Urine Bacteria 2+ /hpf (NONE) H 12/17/21 14:40 Discharge Plan Discharge Patient Disposition: Xfer Short-Term Hosp Clinical Impression: Acute cystitis, Hydronephrosis, Intrinsic ureteral obstruction Condition: Stable Referrals: Austin Duke DO [Primary Care Provider] - Coding Level of Care Code ED Asset Administrator for [place] [place]
--- NOTE | 2021-12-17 14:59 | CTR_ITS ---
PROCEDURE INFORMATION: Exam: CT Abdomen And Pelvis Without Contrast Exam date and time: 12/17/2021 4:51 PM Age: 86 years old Clinical indication: Abdominal pain; Localized; Right lower quadrant (rlq); Prior surgery; Surgery type: , RT hip TECHNIQUE: Imaging protocol: Computed tomography of the abdomen and pelvis without contrast. Radiation optimization: All CT scans at this facility use at least one of these dose optimization techniques: automated exposure control; mA and/or kV adjustment per patient size (includes targeted exams where dose is matched to clinical indication); or iterative reconstruction. COMPARISON: CR Hip 2-3v LEFT wwo Pelv* [id number] 04/26/2019 2:25 PM RADIATION DOSE METRICS: Total DLP (mGy-cm): 1130.17 FINDINGS: Lungs: Mild atelectasis in the lung bases. Calcified granuloma in the right base. Liver: Calcified granulomas in the liver. Small hypodensities in the liver are too small to characterize but are most likely cysts. No follow-up imaging is recommended. Gallbladder and bile ducts: Calcified stone in the gallbladder measuring 3.2 cm. No visible wall thickening. The bile ducts are normal. Pancreas: Normal. No ductal dilation. Spleen: Calcified granulomas in the spleen. 1.2 cm hypodense lesion in the anterior superior spleen, Hounsfield units 29. Adrenal glands: Normal. No mass. Kidneys and ureters: Moderate-severe right hydronephrosis. There is columning of the right ureter to the level of the mid pelvis with gradual narrowing to a normal diameter. There is a possible soft tissue density defect within the distal dilated portion of the ureter. No visible ureteral calculus. The left kidney and collecting system are unremarkable. Stomach and bowel: Unremarkable. No obstruction. No mucosal thickening. Appendix: The appendix is visualized and is normal. Intraperitoneal space: Unremarkable. No free air. No significant fluid collection. Vasculature: Arterial calcifications. No aneurysm. Lymph nodes: Unremarkable. No enlarged lymph nodes. Urinary bladder: Unremarkable as visualized. Reproductive: The uterus and ovaries are unremarkable. Bones/joints: Intramedullary jeanie in the proximal right femur. Old healed right intertrochanteric femur fracture. Mild degenerative changes of the spine. No fracture. Soft tissues: Unremarkable. CT/CT abdomen pelvis wo con [id number] IMPRESSION: 1. Moderate-severe right hydronephrosis with columning of the ureter to the mid pelvis. There is hyperdensity in the distal obstructed ureter but no visible calculus. This could represent a blood clot or an obstructing neoplastic process. Follow-up with a retrograde pyelogram is recommended. 2. 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 For patients without history of cancer, recommend follow-up MRI in 6-12 months. With history of cancer, recommend evaluation with non-emergent PET vs. MRI vs. biopsy. 3. Cholelithiasis.
[2021-12-17 15:26] LABS: Basophils # 0.1 10^3/uL (0.0-0.1); Basophils % 0.6 %; Eosinophils % 0.3 %; Hematocrit 43.4 % (37.0-47.0); Hemoglobin 13.8 g/dL (11.5-15.3); Lymphocytes # 0.8 10^3/uL (0.8-4.8); Lymphocytes % 8.4 %; Mean Corpuscular HGB Conc 31.8 g/dL (30.0-36.0); Mean Corpuscular Hemoglobin 29.8 pg (28.0-34.0); Mean Corpuscular Volume 93.7 fl (81-99); Mean Platelet Volume 10.8 fL (7.4-10.4); Monocytes # 0.7 10^3/uL (0.2-0.9); Monocytes % 7.4 %; Neutrophils # 8.14 10^3/uL (1.8-7.7); Neutrophils % 82.9 %; Nucleated Red Blood Cells % 0 %; Platelet Count 148 10^3/cmm (130-400); Red Blood Count 4.63 10^6/uL (4.1-5.3); Red Cell Distribution Width 13.1 % (12.1-15.1); White Blood Count 9.8 10^3/uL (4.0-10.0)
[2021-12-17] MEDS: morphine 4 mg/mL SDV 1 mL IVP ×2 (15:44→19:58)
[2021-12-17] MEDS: sodium chloride 0.9% 1,000 ML 999 ML IV (15:44)
[2021-12-17] MEDS: ondansetron 2 mg/ML SDV 2 mL 4 MG IVP ×2 (15:44→19:17)
[2021-12-17 15:49] LABS: Alanine Aminotransferase 11 U/L (0-33); Albumin Level 4.1 g/dL (3.5-5.2); Alkaline Phosphatase 88 IU/L (35-105); Anion Gap 15.5 (5-19); Aspartate Amino Transferase 18 U/L (0-32); Blood Urea Nitrogen 13 mg/dL (8-23); Calcium 8.8 mg/dL (8.5-10.5); Carbon Dioxide 24 mmol/L (22-29); Chloride 101 mmol/L (98-107); Globulin 2.1 g/dL (1.3-4.6); Glucose 129 mg/dL (65-115); Osmolality Calculated 284 mOsm/kg (285-295); Potassium 4.5 mmol/L (3.5-5.1); Sodium 136 mmol/L (136-145); Total Bilirubin 0.3 mg/dL (0.15-1.2); Total Protein 6.2 g/dL (6.6-8.7)
[2021-12-17 17:06] LABS: Add Urine Microscopic? YES; Bilirubin Urine Neg (Negative); Blood Urine 2+ (Negative); Glucose Urine UA Norm (Normal); Ketones Urine Negative (Negative); Leukocyte Esterase Urine 2+ (Negative); Nitrate Urine Positive (Negative); Protein Urine Neg (Negative); Specific Gravity, Urine 1.015 (1.005-1.030); Urine Appearance Cloudy (CLEAR); Urine Color Yellow (Yellow); Urobilinogen Urine Norm (Negative); pH Urine 5 (5-7)
[2021-12-17 17:07] LABS: Add Urine Culture? Yes; Bacteria Urine 2+ /hpf; RBC Urine 15-25 /hpf (0-2); WBC Urine >100 /hpf (0-5)
[2021-12-17] MEDS: cefTRIAXone 1,000 MG in sodium chloride 0.9% (plus) 50 ML 100 MG IV (17:47)
[2021-12-17 19:37] LABS: Lipase 44 U/L (13-60)
== END 2021-12-17 21:00 | disposition short-term general hospital (02) ==
PROVIDERS: Family Medicine; Physician Assistant; Emergency Provider Emergency Medicine; PCP Family Medicine
DX: N30.00 Acute cystitis without hematuria (principal); N13.1 Hydronephrosis with ureteral stricture, not elsewhere classified
CPT/HCPCS: 36415; 74176; 80053; 81001; 83690; 85025; 87040; 87077; 87086; 87186; 87205; 96365; 96375; 96376; 99285; J0696; J2270; J2405; J7030

== ENCOUNTER → 2021-12-27 07:55 | Outpatient (BNVA) | payer MEDICARE, SELFPAY | PROVIDERS: PCP Family Medicine; Visit Provider Clinical Nurse Specialist Adult Health | DX: N30.90 Cystitis, unspecified without hematuria (principal); M17.12 Unilateral primary osteoarthritis, left knee | CPT/HCPCS: 80048 ==

== ENCOUNTER 2022-05-06 19:37 | Emergency (ER) | payer MEDICARE, SELFPAY ==
[2022-05-06 19:41] VITALS: BP 124/78; PULSE 100; RESP 24; TEMP 36.7; O2SAT 95
--- NOTE | 2022-05-06 19:55 | ED_ITS ---
HPI - Allergic Reaction General: Chief complaint: Allergic Reaction Stated complaint: Allergic Reaction to Medicine Time Seen by Provider: 05/06/22 19:55 History of Present Illness: HPI narrative: 87-year-old female comes in today for complaints of bilateral hand itching, sneezing, and tearing of the eyes. Patient had a stent removed from her kidney this morning and was given medication to take to reduce infection. After taking the medication within an hour patient started having symptoms of cough, sneeze, and itching hands. Review of the record does note that patient has had nausea with sulfonamide antibiotics in the past. Patient denies any other routine medications. Patient appears nontoxic and in no pain. Review of Systems Eyes: Reports: increased production of tears Resp: Reports: other (Sneezing) Skin/Breast: Reports: pruritus PFS ED PFSH: Medical History (Updated 05/06/22 @ 20:10 by MICHAEL Dong) Cystitis Nodular thyroid disease Osteoarthritis Right wrist fracture Surgical History (Updated 12/27/21 @ 08:27 by Franklin Zamora NP) History of History of inguinal hernia repair Social History Smoking and tobacco status: never smoked Alcohol intake: never Physical Exam Const: COMMON NORMALS: alert HENMT: COMMON NORMALS: normocephalic HEAD & SCALP: normocephalic Neck/C-Spine: COMMON NORMALS: no meningeal signs Resp: COMMON NORMALS: normal respiratory effort and clear to auscultation bilaterally AUSCULTATION: clear to auscultation bilaterally Cardio: COMMON NORMALS: regular rate and regular rhythm RATE: regular rate RHYTHM: regular rhythm HEART SOUNDS: Murmur heart sound present GI: COMMON NORMALS: non-tender Extremity: COMMON NORMALS: no pedal edema Neuro: SENSORIUM/ORIENTATION: Yes alert MENINGEAL SIGNS: Yes no meningeal signs Skin: COMMON NORMALS: turgor normal GENERAL SKIN EXAM: turgor normal Course Vital Signs: Vital signs: Vital Signs Temperature 98.1 F 05/06/22 19:41 Pulse Rate 100 05/06/22 19:41 Respiratory Rate 24 H 05/06/22 19:41 Blood Pressure 124/78 05/06/22 19:41 Pulse Oximetry 95 05/06/22 19:41 Oxygen Delivery Me thod 12/12/22 19:41 MDM - Allergic Reaction Medical Decision Making 87-year-old female comes in today for complaints of itching and sneezing and tearing of the eyes. Patient had taken some Bactrim and after that started having a reaction. On exam patient appears nontoxic. Respirations are even lungs are clear to auscultation. Patient does have a audible murmur. No edema is noted in the extremities. Watering of the eyes is noted. Erythema to the palms of the hand is noted. Vital signs are normal. Differential diagnosis includes but not limited to allergic reaction, anxiety, anaphylaxis. No signs of serious illness or injury is noted. Patient was given diphenhydramine and dexamethasone IV. Patient was monitored without any worsening of symptoms and improvement noted. Patient was recommended to continue with Claritin 1 tablet twice a day for the next 5 days. Patient was recommended to follow-up with urologist for other medication for the treatment of infection, patient reported understanding agreed to plan. Discharge Plan Discharge Patient Disposition: Home Clinical Impression: Allergic reaction Condition: Stable Prescriptions: New loratadine 10 mg tablet 10 mg PO BID Qty: 10 0RF No Action calcium carbonate-vitamin D3 PO vitamins A,C,[id number] [PreserVision AREDS] PO sulfamethoxazole-trimethoprim 800-160 mg tablet 1 tab PO BID Discharge Orders: Discharge ED (Routine); Ordered 05/06/22 Ordered By: Missael Gillette Referrals: Austin Duke DO [Primary Care Provider] - Discharge Diet: Usual diet Discharge Activity: Increase activity as tolerated Patient Instructions: Allergic Reaction, Opioid Safety, Pain Management Activity Restrictions/Additional Instructions: Home and rest. Drink plenty of water and fluids. Do not take antibiotic anymore. Follow-up with urologist in the morning for alternative medication. Take Claritin, loratadine, 10 mg 1 tablet twice a day to help with itching and rash. The rash may wax and wane for the next 3 days. Follow-up with primary care as needed. Return to the ER for worsening symptoms such as blisters or worsening rash, fever greater than 100.4, increased difficulty breathing, or new concerns. Coding Level of Care Code ED Photogrammetric Technician for Jana Fwd Exam Comprehensive
[2022-05-06] MEDS: dexamethasone 10 mg/mL INJ IVP (20:06)
[2022-05-06] MEDS: diphenhydrAMINE 50 mg/mL SDV 1mL 25 MG IVP (20:07)
== END 2022-05-06 21:25 | disposition home or self-care (01) ==
PROVIDERS: Emergency Provider Nurse Practitioner Family; PCP Family Medicine
DX: T78.40XA Allergy, unspecified, initial encounter (principal)
CPT/HCPCS: 96374; 96375; 99284; J1100; J1200

== ENCOUNTER 2022-05-25 09:39 | Emergency (ER) | payer MEDICARE, SELFPAY ==
[2022-05-25 09:42] VITALS: BP 153/68; PULSE 69; RESP 16; TEMP 36.6; O2SAT 97
--- NOTE | 2022-05-25 09:44 | XRR_ITS ---
PROCEDURE INFORMATION: Exam: XR Lumbosacral Spine Exam date and time: 05/25/2022 10:09 AM Age: 87 years old Clinical indication: Low back pain; Patient HX: PT has had surgery on her RT hip and prior FX in her left hip; Additional info: Back pain - sudden onset TECHNIQUE: Imaging protocol: Radiologic exam of the lumbosacral spine. Views: 2 or 3 views. COMPARISON: 1. CR XR lumbar spine 2-3V* [id number] 04/26/2019 2:[address] abdomen pelvis wo con [id number] 12/17/2021 4:51 PM FINDINGS: Bones/joints: There is diffuse decreased bone density. There is mild compression fracture of the superior endplate of L4 which is new since the prior CT scan from 12/17/2021. There is no significant malalignment. Degenerative changes are present with scattered osteophytes. Soft tissues: Unremarkable. XR/XR lumbar spine 2-3V* [id number] IMPRESSION: 1. Mild compression fracture of the superior endplate of L4 which is new since prior CT scan. 2. Chronic degenerative disease.
--- NOTE | 2022-05-25 09:45 | ED_ITS ---
HPI - Back Pain/Injury General: Chief Complaint: Back Pain/Injury Stated Complaint: Extreme Back Pain Time Seen by Provider: 05/25/22 09:44 Source: patient Mode of arrival: ambulatory History of Present Illness: 87-year-old female presents emergency room she bent over a few days ago felt a popping sensation began have severe pain in her low back since then gotten progressively worse she tried some pain medicines at home have not been very helpful she denies any loss of bowel or bladder control. No other injuries no loss consciousness. She has had multiple other fractures including bilateral hip fractures and a right wrist fracture. She is not any treatment for osteoporosis. MD elicited complaint: back injury Onset (ago): day(s) (2) Timing: constant Severity: moderate Quality: sharp Exacerbating factors: sitting upright and walking Relieving factors: supine Associated symptoms: Deny abdominal pain, arthralgias, chills, change in bowel habits, difficulty walking, dysuria, fatigue, fecal incontinence, fever(s), hematuria, myalgias, nausea, numbness, syncope, tingling/numbness/burning, urinary frequency, urinary urgency, vomiting or weakness Review of Systems Const: Denies: fever(s), chills or fatigue ENMT: Denies: throat pain, ear or mastoid pain, nasal discharge or nasal congestion Card: Denies: syncope Resp: Denies: dyspnea, productive cough or non-productive cough GI: Denies: abdominal pain, nausea, vomiting, fecal incontinence or change in bowel habits : Denies: dysuria, urinary urgency or hematuria Skin/Breast: Denies: rash or pruritus Neuro: Denies: difficulty walking PFSH ED PFSH: Medical History Cystitis Nodular thyroid disease Osteoarthritis Right wrist fracture Surgical History History of History of inguinal hernia repair S/P total right hip arthroplasty Social History Smoking and tobacco status: never smoked Alcohol intake: never Physical Exam Const: GENERAL APPEARANCE: cooperative and comfortable ORIENTATION/CONSCIOUSNESS: Yes awake, Yes oriented to person, Yes oriented to place and Yes oriented to time HENMT: COMMON NORMALS: normocephalic, atraumatic and hearing grossly normal bilaterally HEAD & SCALP: normocephalic and atraumatic Resp: COMMON NORMALS: normal respiratory effort, No retractions, No use of accessory muscles and clear to auscultation bilaterally AUSCULTATION: clear to auscultation bilaterally Cardio: COMMON NORMALS: regular rate, regular rhythm and No murmurs present (Cardio) RATE: regular rate RHYTHM: regular rhythm GI: COMMON NORMALS: Soft to palpation and No hepatosplenomegaly present AUSCULTATION: Yes normoactive bowel sounds PALPATION: Yes Soft to palpation, No Tenderness to palpation present (GI), No Guarding due to palpation present (GI) and Yes No hepatosplenomegaly present Extremity: COMMON NORMALS: normal to inspection, capillary refill normal, no clubbing, cyanosis or edema, no calf tenderness and no pedal edema Neuro: SENSORIUM/ORIENTATION: Yes oriented to person, Yes oriented to place and Yes oriented to time Skin: COMMON NORMALS: no rashes or lesions noted GENERAL SKIN EXAM: no rashes or lesions noted Course Vital Signs: Vital signs: Vital Signs Temperature 97.8 F 05/25/22 09:42 Pulse Rate 64 05/25/22 12:11 Respiratory Rate 16 05/25/22 12:11 Blood Pressure 157/69 05/25/22 12:11 Pulse Oximetry 95 05/25/22 12:11 Oxygen Delivery Me thod 05/25/22 11:00 MDM - Back Pain/Injury Medical Decision Making Lumbar compression fracture noted at the superior endplate of L4 consistent with her history. Given the patient's other history of sure she has clinically significant and very least osteoporosis. We will start her on pain medications refer to orthopedic spine surgery for possible kyphoplasty Medical Records I reviewed the patient's medical records. Labs I reviewed the patient's lab results. Radiology Impressions Lumbar Spine X-Ray 05/25/22 09:44 IMPRESSION: 1. Mild compression fracture of the superior endplate of L4 which is new since prior CT scan. 2. Chronic degenerative disease. Discharge Plan Discharge Patient Disposition: Home Clinical Impression: Compression fx, lumbar spine, Osteoporosis Condition: Stable Prescriptions: New hydrocodone-acetaminophen 5-325 mg tablet 1 tab PO Q6H PRN (Reason: pain) Qty: 25 0RF No Action calcium carbonate-vitamin D3 PO vitamins A,C,H-[id number]-[id number] [PreserVision AREDS] PO amoxicillin 500 mg capsule 500 mg PO BID tramadol 50 mg tablet 50 mg PO Q6H PRN (Reason: pain) Qty: 20 0RF loratadine 10 mg tablet 10 mg PO BID Qty: 10 0RF Discharge Orders: Discharge ED (Routine); Ordered 05/25/22 Ordered By: José Antonio Carnes Referrals: Austin Duke DO [Primary Care Provider] - Discharge Diet: Usual diet Discharge Activity: Limit activity as instructed Patient Instructions: Opioid Safety, Pain Management Activity Restrictions/Additional Instructions: You are seen today for back pain. X-ray shows L4 compression fracture. Case management make arrangements for you to follow-up with orthopedic surgery for consideration of kyphoplasty. Use the pain medication as needed to help with back pain. Avoid lifting turning bending or twisting through your low back as this will make things worse. Also avoid lifting anything more than 10 pounds. Coding Level of Care Code ED Operations And Maintenance Technician for Jana Madison
[2022-05-25 10:48] VITALS: RESP 16; O2SAT 99
[2022-05-25] MEDS: morphine 4 mg/mL SDV 1 mL IM (10:48)
[2022-05-25] MEDS: ondansetron 2 mg/ML SDV 2 mL 4 MG IM (10:48)
[2022-05-25 11:00] VITALS: BP 132/89; PULSE 69; RESP 15; O2SAT 100
[2022-05-25 12:11] VITALS: BP 157/69; PULSE 64; RESP 16; O2SAT 95
== END 2022-05-25 12:13 | disposition home or self-care (01) ==
PROVIDERS: Emergency Provider Family Medicine; PCP Family Medicine
DX: S32.040A Wedge compression fracture of fourth lumbar vertebra, initial encounter for closed fracture (principal); X50.1XXA Overexertion from prolonged static or awkward postures, initial encounter
CPT/HCPCS: 72100; 96372; 96374; 96375; 99284; J2270; J2405

== ENCOUNTER → 2022-05-28 09:35 | Outpatient (BNVA) | payer MEDICARE, SELFPAY | PROVIDERS: PCP Family Medicine; Visit Provider Orthopaedic Surgery | DX: M54.9 Dorsalgia, unspecified (principal); X50.1XXA Overexertion from prolonged static or awkward postures, initial encounter | CPT/HCPCS: 99204 ==

== ENCOUNTER 2022-05-30 10:12 | Outpatient (CLI) | payer MEDICARE, SELFPAY ==
--- NOTE | 2022-05-30 10:15 | MR_ITS ---
WS: [id number] MRI LUMBAR SPINE NONCONTRAST TECHNIQUE: Sagittal T1, T2 and STIR imaging. Axial T1 and T2 imaging. CLINICAL INFORMATION: Evaluation of L4 compression fracture COMPARISON: Radiograph May 25, 2022 FINDINGS: Mild lumbar curve. Acute compression superior endplates L2 and L4 with edema worse at the L4 level. V isualized fracture clefts in the superior endplates. No significant retropulsion. Mild loss vertebral body height measuring 20% at both levels. Edema extends into the pedicles at L4. L1-L2: Mild annular bulging. Small RIGHT foraminal protrusion with mild RIGHT foraminal narrowing. Sl ight narrowing of the RIGHT subarticular recess. L2-L3: Mild annular bulging with slight narrowing of the subarticular recess bilaterally. Mild facet arthropathy. Foramen are patent. L3-L4: Mild disc bulging and osteophytic ridging. Moderate central canal stenosis with impingement tr aversing L4 nerve roots bilaterally. Moderate facet arthropathy. Mild RIGHT and no significant LEFT f oraminal narrowing. L4-L5: Mild annular bulging with moderate central canal stenosis. Impingement traversing L5 nerve claudine ts bilaterally. Moderate facet arthropathy. Foramen are patent. L5-S1: Mild annular bulging. Mild to moderate facet arthropathy. Spinal canal and foramen are patent. RIGHT lower pole renal cyst measuring 1.9 cm. MR/MR lumbar spine wo con* [id number] IMPRESSION: 1. Mild lumbar curve. 2. Mild compression superior endplates at L2 and L4 with edema worse at L4. Lo ss of approximately 20% vertebral body height at both levels. No significant re tropulsion. 3. Moderate central canal stenosis L3-L4 and L4-L5 with impingement traversing L4 and L5 nerve roots respectively. 4. Mild central canal stenosis L2-L3 with narrowing of the subarticular recess bilaterally. 5. Moderate facet arthropathy L3-L4 and L4-L5.
== END 2022-05-30 10:13 | disposition home or self-care (01) ==
PROVIDERS: PCP Family Medicine; Visit Provider Orthopaedic Surgery
DX: S32.040A Wedge compression fracture of fourth lumbar vertebra, initial encounter for closed fracture (principal); M47.816 Spondylosis without myelopathy or radiculopathy, lumbar region; M48.061 Spinal stenosis, lumbar region without neurogenic claudication; X58.XXXA Exposure to other specified factors, initial encounter; R60.0 Localized edema
CPT/HCPCS: 72148

== ENCOUNTER → 2022-06-04 14:20 | Outpatient (BNVA) | payer MEDICARE, SELFPAY | PROVIDERS: PCP Family Medicine; Visit Provider Orthopaedic Surgery | DX: M48.56XA Collapsed vertebra, not elsewhere classified, lumbar region, initial encounter for fracture (principal) | CPT/HCPCS: 99214 ==

== ENCOUNTER → 2022-06-20 15:26 | Outpatient (BNVA) | payer MEDICARE, SELFPAY | PROVIDERS: PCP Family Medicine; Visit Provider Orthopaedic Surgery | DX: S32.020D Wedge compression fracture of second lumbar vertebra, subsequent encounter for fracture with routine healing (principal); S32.040D Wedge compression fracture of fourth lumbar vertebra, subsequent encounter for fracture with routine healing; X58.XXXD Exposure to other specified factors, subsequent encounter; M85.88 Other specified disorders of bone density and structure, other site; M47.816 Spondylosis without myelopathy or radiculopathy, lumbar region | CPT/HCPCS: 72100; 99213 ==

== ENCOUNTER → 2022-07-18 15:34 | Outpatient (BNVA) | payer MEDICARE, SELFPAY | PROVIDERS: PCP Family Medicine; Visit Provider Orthopaedic Surgery | DX: S32.020D Wedge compression fracture of second lumbar vertebra, subsequent encounter for fracture with routine healing (principal); S32.040D Wedge compression fracture of fourth lumbar vertebra, subsequent encounter for fracture with routine healing; X58.XXXD Exposure to other specified factors, subsequent encounter | CPT/HCPCS: 72100; 99213 ==

== ENCOUNTER → 2022-08-15 13:35 | Outpatient (BNVA) | payer MEDICARE, SELFPAY | PROVIDERS: PCP Family Medicine; Visit Provider Physician Assistant | DX: S32.000D Wedge compression fracture of unspecified lumbar vertebra, subsequent encounter for fracture with routine healing (principal); X58.XXXD Exposure to other specified factors, subsequent encounter | CPT/HCPCS: 72100; 99213 ==

== ENCOUNTER 2022-10-07 08:13 | Emergency (ER) | payer MEDICARE, SELFPAY ==
[2022-10-07 08:29] VITALS: BP 158/66; PULSE 66; RESP 22; TEMP 36.7; O2SAT 99; BMI 24.4
--- NOTE | 2022-10-07 08:37 | ED_ITS ---
HPI - Back Pain/Injury General: Chief Complaint: Back Pain/Injury Stated Complaint: back pain, sent by Jose C Time Seen by Provider: 10/07/22 08:15 Source: patient Mode of arrival: ambulatory History of Present Illness: 87-year-old female presents emergency room complaining of back pain. Most of her back pain is on the right paraspinal and all Bleich muscles. She cannot recall any precipitating cause. She has had several compression fractures been imaged several times since the first of the year. After discussion with orthopedic spine surgeon they discharged to treat conservatively and forego kyphoplasty. They had left open the option if she did not start to feel better of some interventional procedure but that has not been pursued yet. Patient does not recall a particular incidence that seem to set off at this flare of her back pain. No dysuria urgency or frequency no fever sweats or chills no recent falls or trauma. She states the pain pain seems to progressively worsen there was no sudden onset of this particular episode. She notes that whenever she tries to move or reposition herself it worsens significantly. MD elicited complaint: back pain Pertinent past history: prior back pain Onset (ago): week(s) Timing: intermittent and progressively worsening Severity: moderate Quality: sharp Location: right lower back Exacerbating factors: movement Relieving factors: supine Associated symptoms: Deny abdominal pain, arthralgias, chills, change in bowel habits, difficulty walking, dysuria, fatigue, fecal incontinence, fever(s), hematuria, myalgias, nausea, numbness, syncope, tingling/numbness/burning, urinary frequency, urinary urgency, vomiting or weakness Review of Systems Const: Denies: fever(s), chills or fatigue ENMT: Denies: throat pain, ear or mastoid pain, nasal discharge or nasal congestion Card: Denies: syncope Resp: Denies: dyspnea, productive cough or non-productive cough GI: Denies: abdominal pain, nausea, vomiting, fecal incontinence or change in bowel habits : Denies: dysuria, urinary urgency or hematuria Skin/Breast: Denies: rash or pruritus Neuro: Denies: difficulty walking PFS ED PFSH: Medical History Cystitis Nodular thyroid disease Osteoarthritis Right wrist fracture Surgical History History of History of inguinal hernia repair S/P total right hip arthroplasty Social History Smoking and tobacco status: never smoked Alcohol intake: never Physical Exam Const: COMMON NORMALS: no acute distress GENERAL APPEARANCE: cooperative and comfortable ORIENTATION/CONSCIOUSNESS: Yes awake, Yes oriented to person, Yes oriented to place and Yes oriented to time HENMT: COMMON NORMALS: normocephalic, atraumatic and hearing grossly normal bilaterally HEAD & SCALP: normocephalic and atraumatic Resp: COMMON NORMALS: normal respiratory effort, No retractions, No use of accessory muscles and clear to auscultation bilaterally AUSCULTATION: clear to auscultation bilaterally Cardio: COMMON NORMALS: regular rate, regular rhythm and No murmurs present (Cardio) RATE: regular rate RHYTHM: regular rhythm GI: COMMON NORMALS: Soft to palpation and No hepatosplenomegaly present AUSCULTATION: Yes normoactive bowel sounds PALPATION: Yes Soft to palpation, No Tenderness to palpation present (GI), No Guarding due to palpation present (GI) and Yes No hepatosplenomegaly present Extremity: COMMON NORMALS: normal to inspection, capillary refill normal, no clubbing, cyanosis or edema, no calf tenderness and no pedal edema Neuro: SENSORIUM/ORIENTATION: Yes oriented to person, Yes oriented to place and Yes oriented to time Skin: COMMON NORMALS: no rashes or lesions noted GENERAL SKIN EXAM: no rashes or lesions noted Course Vital Signs: Vital signs: Vital Signs Temperature 98.0 F 10/07/22 08:29 Pulse Rate 68 10/07/22 11:08 Respiratory Rate 20 H 10/07/22 09:50 Blood Pressure 128/66 10/07/22 11:08 Pulse Oximetry 97 10/07/22 11:08 Oxygen Delivery Me thod Room Air 10/07/22 10:00 MDM - Back Pain/Injury Medical Decision Making No changes on plain films were previous compression fractures. Pain improved with medications given we will discharge patient home with pain medication she proceeded with prescription yesterday for hydrocodone gave her diclofenac and tizanidine to use as needed. Follow-up with Dr. Delgado. She has no focal neurologic deficits or red flags and symptoms at this time. Medical Records I reviewed the patient's medical records. Labs I reviewed the patient's lab results. Radiology Impressions Lumbar Spine X-Ray 10/07/22 08:47 IMPRESSION: 1. No significant change in the appearance of multiple vertebral endplate compression fractures. 2. Chronic degenerative disease. Discharge Plan Discharge Patient Disposition: Home Clinical Impression: Compression fracture, Strain of lumbar region Condition: Stable Prescriptions: New tizanidine 4 mg tablet 2 mg PO Q6H PRN (Reason: muscle spasticity) Qty: 20 0RF Rx Instructions: do not exceed 3 doses per 24 hrs diclofenac sodium 75 mg tablet,delayed release (DR/EC) 75 mg PO Q12H PRN (Reason: pain) Qty: 20 0RF No Action hydrocodone-acetaminophen 5-325 mg tablet 1 tab PO Q6H PRN (Reason: pain) 7 Days Qty: 30 0RF Tylenol Ex Str Rapid Release 500 mg Tablet 500 - 1,000 mg PO Q6H PRN (Reason: Pain) Calcium 500 500 mg calcium (1,250 mg) Tablet 500 mg PO DAILY@12 Vitamin D3 25 mcg (1,000 unit) Tablet 1,000 unit PO BID PreserVision AREDS-2 250-90-40-1 mg Capsule 1 tab PO BID Discharge Orders: Discharge ED (Routine); Ordered 10/07/22 Ordered By: José Antonio Carnes Referrals: Austin Duke DO [Primary Care Provider] - Discharge Diet: Usual diet Discharge Activity: Increase activity as tolerated Patient Instructions: Opioid Safety, Pain Management Activity Restrictions/Additional Instructions: You are seen today for back pain. X-rays did not show any new compression fractures on exam your pain seems more musculoskeletal in nature. Use the hydrocodone you are previously prescribed along with diclofenac and tizanidine as needed. Follow-up with Dr. Delgado. Coding Level of Care Code ED Painter Helper Spray for Jana Madison
--- NOTE | 2022-10-07 08:47 | XRR_ITS ---
PROCEDURE INFORMATION: Exam: XR Lumbosacral Spine Exam date and time: 10/07/2022 8:59 AM Age: 87 years old Clinical indication: Low back pain; Additional info: Back pain - HX compression FX TECHNIQUE: Imaging protocol: Radiologic exam of the lumbosacral spine. Views: 2 or 3 views. COMPARISON: CR XR lumbar spine 2-3V* [id number] 08/15/2022 1:36 PM FINDINGS: Bones/joints: There is diffuse osteopenia. There are old compression fractures of the superior endplates of the vertebral bodies from L2-L5. No new fractures are seen. Degenerative changes are present with scattered small osteophytes on the vertebral bodies and narrowing and hypertrophy of the lower lumbar facet joints. Soft tissues: Unremarkable. XR/XR lumbar spine 2-3V* [id number] IMPRESSION: 1. No significant change in the appearance of multiple vertebral endplate compression fractures. 2. Chronic degenerative disease.
[2022-10-07 09:50] VITALS: RESP 20
[2022-10-07] MEDS: orphenadrine 30 mg/mL Inj 2 mL 60 MG IVP (09:50)
[2022-10-07] MEDS: morphine 4 mg/mL SDV 1 mL IVP (09:50)
[2022-10-07 09:54] VITALS: BP 134/69; PULSE 74; O2SAT 100
[2022-10-07 10:00] VITALS: BP 148/70; PULSE 65; O2SAT 100
[2022-10-07 11:08] VITALS: BP 128/66; PULSE 68; O2SAT 97
== END 2022-10-07 11:10 | disposition home or self-care (01) ==
PROVIDERS: Emergency Provider Family Medicine; PCP Family Medicine
DX: S39.012A Strain of muscle, fascia and tendon of lower back, initial encounter (principal); S32.020A Wedge compression fracture of second lumbar vertebra, initial encounter for closed fracture; S32.030A Wedge compression fracture of third lumbar vertebra, initial encounter for closed fracture; S32.040A Wedge compression fracture of fourth lumbar vertebra, initial encounter for closed fracture; S32.050A Wedge compression fracture of fifth lumbar vertebra, initial encounter for closed fracture; X58.XXXA Exposure to other specified factors, initial encounter
CPT/HCPCS: 72100; 96374; 96375; 99284; J2270; J2360

== ENCOUNTER → 2022-10-10 08:00 | Outpatient (BNVA) | payer MEDICARE, SELFPAY | PROVIDERS: PCP Family Medicine; Referring Provider Family Medicine; Visit Provider Orthopaedic Surgery | DX: M54.9 Dorsalgia, unspecified (principal) | CPT/HCPCS: 99214 ==

== ENCOUNTER 2022-10-16 16:34 | Outpatient (CLI) | payer MEDICARE, SELFPAY ==
--- NOTE | 2022-10-16 16:45 | MR_ITS ---
WS: [id number] MRI LUMBAR SPINE NONCONTRAST HISTORY: compression fractures COMPARISON: 05/30/2022, radiographs 10/07/2022 TECHNIQUE: Sagittal and axial multisequence imaging is submitted. Marked increase in the thoracic kyphosis. Prior mild anterior wedging of T4. Increased T2 signal in T 9 probably from a hemangioma. New compression fractures in T10, T11 and T12 with mild concavity invol ving the endplates. Most significant at T10 of approximately 15%. There is very slight retropulsion o f the superior posterior endplate of T11 by 2 mm. No contact on the conus. L4 anterolisthesis by 3 mm. L2 compression fracture involving the superior endplate is similar to 05/30. L3 compression fracture has increased. Biconcave fracture with loss of height at 40%. Small am ount of marrow edema along the superior endplate of L4. Marrow edema has improved since the prior exa m. New L5 compression fracture by 30%. Marrow edema involving predominantly the superior endplate. No retropulsion. Edema in the L5-S1 articular facets. Conus terminates normally at L1-2 disc level. L1-L2: Mild annular disc bulging encroaching upon the thecal sac. 2 mm retrolisthesis of the superior endplate of L2 is new. Small RIGHT foraminal disc protrusion with mild stenosis. L2-L3: Annular disc bulging with moderate ligamentum flavum and facet arthritis. Mild central, bilate ral subarticular recess and foraminal stenosis. L3-L4: Annular disc bulging, moderate ligamentum flavum and facet arthritis. Encroachment upon the ce ntral canal and subarticular recesses. Moderate central, bilateral subarticular recess and mild concha inal stenosis. Impingement upon the traversing L4 nerve roots. L4-L5: Mild annular disc bulging with severe ligamentum flavum and mild facet arthritis. Severe defor mity of the central canal. Severe central, bilateral subarticular recess and mild foraminal stenosis. Central canal stenosis appears to have progressed since 05/30/2022. Mild retropulsion of the superior endplate of L5 contributing to the central stenosis. L5-S1: Annular disc bulge with moderate ligamentum flavum and facet arthritis. Central and bilateral subarticular recess and mild foraminal stenosis. Progression of stenosis since the prior study. Visualized retroperitoneal structures are unchanged. RIGHT renal cyst. MR/MR lumbar spine wo con* [id number] IMPRESSION: 1. New osteoporotic compression fractures and T10, T11 and T12 with minimal lo ss of height. Most significant at T10 by 15%. 2. Posterior superior T11 endplate posterior displacement by 2 mm. No contact on the conus. 3. New L5 compression fracture by 30% with 2 mm retropulsion of the posterior superior endplate. 4. Slight increase in the L3 compression fracture now at 40%. 5. No change in the previous the described L2 and L4 compression fractures oth er than improving edema. 6. Severe central, bilateral subarticular recess and mild foraminal stenosis a t L4-5. Stenosis has progressed since 05/30/2022. Contributing to the stenosis is a slight retropulsion of posterior superior endplate of L5. 7. Small RIGHT foraminal disc protrusion with mild foraminal stenosis at L1-2. 8. Moderate central, bilateral subarticular recess and mild foraminal stenosi s at L3-4. Encroachment upon the traversing L4 nerve roots. 9. Mild central, bilateral subarticular recess and foraminal stenosis L5-S1 an d L2-3.
== END 2022-10-16 16:35 | disposition home or self-care (01) ==
PROVIDERS: PCP Family Medicine; Visit Provider Orthopaedic Surgery
DX: M80.88XA Other osteoporosis with current pathological fracture, vertebra(e), initial encounter for fracture (principal); M48.07 Spinal stenosis, lumbosacral region
CPT/HCPCS: 72148

== ENCOUNTER → 2022-10-31 14:51 | Outpatient (BNVA) | payer MEDICARE, SELFPAY | PROVIDERS: PCP Family Medicine; Visit Provider Orthopaedic Surgery | DX: M54.9 Dorsalgia, unspecified (principal) | CPT/HCPCS: 99214 ==

== ENCOUNTER → 2023-01-23 08:45 | Outpatient (BNVA) | payer MEDICARE, SELFPAY | PROVIDERS: PCP Family Medicine; Visit Provider Family Medicine | DX: M81.0 Age-related osteoporosis without current pathological fracture (principal); E04.1 Nontoxic single thyroid nodule | CPT/HCPCS: 80053; 82306; 84443 ==

== ENCOUNTER → 2024-04-13 15:02 | Outpatient (BNVA) | payer MEDICARE, SELFPAY | PROVIDERS: PCP Family Medicine; Visit Provider Family Medicine | DX: Z00.00 Encounter for general adult medical examination without abnormal findings (principal) | CPT/HCPCS: 80053; 85025 ==

== ENCOUNTER → 2024-12-06 11:08 | Outpatient (BNVA) | payer MEDICARE, SELFPAY | PROVIDERS: PCP Family Medicine; Visit Provider Family Medicine | DX: R53.1 Weakness (principal); E04.1 Nontoxic single thyroid nodule; R53.83 Other fatigue; M81.0 Age-related osteoporosis without current pathological fracture | CPT/HCPCS: 80053; 82306; 82607; 83735; 84443; 85025 ==

== ENCOUNTER 2024-12-13 15:16 | Outpatient (CLI) | payer MEDICARE, SELFPAY ==
--- NOTE | 2024-12-13 15:26 | XR_ITS ---
WS: [id number] DEXA (DUAL ENERGY X-RAY ABSORPTIOMETRY) Bone mineral density was performed using a epacube machine. HISTORY: osteoporosis screening COMPARISON: None available. Lumbar spine BMD (L1-L4): 0.834 g/cm2 T score: -2.9 Z score: -0.9 Total hip BMD: Left: 0.562 (g/cm2). T score: -3.5 (no units) Z score: -1.0 (no units) Left forearm BMD: 0.411 g/cm2. T score: -5.3 Z score: -1.7 10 year probability of a major osteoporotic fracture is 30.7%. XR/XR DEXA axial skeleton* [id number] IMPRESSION: OSTEOPOROSIS based upon the WHO classification for females. Patient has signifi cant increased risk for fracture.
== END 2024-12-13 15:17 | disposition home or self-care (01) ==
LOC: RAD 15:17
PROVIDERS: PCP Family Medicine; Visit Provider Family Medicine
DX: Z13.820 Encounter for screening for osteoporosis (principal); Z78.0 Asymptomatic menopausal state; M81.0 Age-related osteoporosis without current pathological fracture
CPT/HCPCS: 77080

== ENCOUNTER 2025-02-13 14:22 | Emergency (ER) | payer MEDICARE, SELFPAY ==
--- OUTSIDE RECORDS SUMMARY | 2023-11-15 04:00 | XMS_ITS ---
Author Organization [facility] Address [address] [place] [address] Care Team Providers Care Honey Producer Name Role Phone Gisell Patton Unavailable [phone] Migration, Provider Unavailable Unavailable REASON FOR VISIT EMR-Fabian Encounters Encounter Location Date Provider Diagnosis Migrated_Facility 0 0 11/15/2023 Provider Migration Plan Of Treatment Medication Medication Name Sig Start Date Stop Date Notes Amoxicillin 500 MG Capsule Oral 03/20/2023 NITROFURANTOIN, MACROCRYSTAL S 100 MG Oral Capsule 04/02/2022 04/05/2022 *Reorder fro m Medispan for eRx and Interaction Alerts* Progress Notes * Yoselin MAHER EDOB: [birth year] (89 yo F)Acc No.[id number]:11/15/2023 Patient: Yoselin MEDINA :1935 A ge:88 Y S ex:Female Address:[address] [place] [id number] * Refills Stop Amoxicillin Capsule, 500 MG, Oral Stop Amoxicillin Capsule, 500 MG, Oral Stop NITROFURANTOIN, MACROCRYSTALS 100 MG Oral Capsule Subjective: * Chief Complaints: * E MR-Fabian * * Date:
--- OUTSIDE RECORDS SUMMARY | 2023-11-16 04:00 | XMS_ITS ---
Author Organization [facility] Address [address] [place] [address] Care Team Providers Care Cna Name Role Phone Gisell Patton Unavailable [phone] Migration, Provider Unavailable Unavailable Allergies Allergen (clinical drug ingredient) Drug/Non Drug Allergy documented on EMR Reaction Allergy Type Onset Date Status No Known Drug Allergy Unknown Drug Allergy Active Substance with sulfonamide structure and antibacterial mechanism of action (substance) Sulfa Antibiotics Reaction 1:Hives Drug Allergy 05/07/2022 active REASON FOR VISIT EMR-[facility] [place] Medications Medication SIG (Take, Route, Frequency, Duration) Notes Start Date End Date Status nitrofurantoin, macrocrystals 25 MG / nitrofurantoin, monohydrate 75 MG Oral Capsule [Macrobid] ORAL *Reorder from [facility] for eRx and Interaction Alerts* 03/12/2023 03/19/2023 Active Social History Social History Additional Details Category Social Info Options Details Migrated Social History Migrated Social History History of tobacco use : , Smoking Status : Never used tobacco Encounters Encounter Location Date Provider Diagnosis Migrated_Facility 0 0 11/16/2023 Provider Migration Plan Of Treatment No Information Progress Notes * German MAHERha EDOB: [birth year] (89 yo F)Acc No.[id number]:11/16/2023 Patient: Yoselin MEDINA :1935 A ge:88 Y S ex:Female Address:[address] [place] [id number] Subjective: * Chief Complaints: * E MR-Fabian * Social History: M igrated Social History: M igrated Social History: History of tobacco use : , Smoking Status : Never used tobacco. * Medications: T akingnitrofurantoin, macrocrystals 25 MG / nitrofurantoin, monohydrate 75 MG Oral Capsule [Macrobid] ORAL , stop date 03/19/2023, Notes to Pharmacist: *Reorder from [facility] for eRx and Interaction Alerts*Taking nitrofurantoin, macrocrystals 25 MG / nitrofurantoin, monohydrate 75 MG Oral Capsule [Macrobid] ORAL , stop date 03/19/2023, Notes to Pharmacist: *Reorder from [facility] for eRx and Interaction Alerts* * Allergies: S ulfa Antibiotics : Reaction 1:Hives - Allergy - Onset Date 05/07/2022No Known Drug Allergy: Allergy * * Date:
--- NOTE | 2025-02-13 14:24 | XRR_ITS ---
PROCEDURE INFORMATION: Exam: XR Left Shoulder Exam date and time: 02/13/2025 2:35 PM Age: 89 years old Clinical indication: Pain; Shoulder; Left; Additional info: Lt shoulder pain post fall TECHNIQUE: Imaging protocol: Radiologic exam of the left shoulder. Views: 2 or more views. COMPARISON: No relevant prior studies available. FINDINGS: Bones/joints: Generalized decreased bone density seen consistent with osteopenia. Moderate periarticular spurring/degenerative changes are seen in the AC joint. Soft tissues: Slight crowding is seen in the left basilar lung region suggestive of some atelectasis. XR/XR shoulder LT min 2V* [id number] IMPRESSION: 1. No acute osseous plain-film findings. 2. Osteoarthritic/degenerative changes of the AC joint. 3. Osteopenia.
--- NOTE | 2025-02-13 14:24 | XRR_ITS ---
PROCEDURE INFORMATION: Exam: XR Right Knee Exam date and time: 02/13/2025 2:35 PM Age: 89 years old Clinical indication: Pain; Knee; Right; Additional info: RT knee pain/swelling post fall TECHNIQUE: Imaging protocol: Radiologic exam of the right knee. Views: 3 views. COMPARISON: No relevant prior studies available. FINDINGS: Bones/joints: Minimal narrowing of the medial compartment is noted with trace spurring. Mild spurring is noted along the articular margins of the patella. Bony cortical margins and articulations appear to be otherwise relatively intact with no discrete linear areas of decreased density as might suggest the presence of the fracture. Generalized decreased bone density seen consistent with osteopenia. Soft tissues: Prepatellar/anterior knee soft tissue swelling is seen consistent with history of trauma. Atherosclerotic calcifications of the visualized femoral and popliteal arteries are noted. XR/XR knee RT 3V* [id number] IMPRESSION: 1. Mild osteoarthritic/degenerative changes with no acute osseous plain-film findings. 2. Prominent prepatellar/anterior knee swelling consistent with trauma/hematoma. 3. Osteopenia. 4. Atherosclerotic calcifications of the femoral and popliteal arteries.
[2025-02-13 14:26] VITALS: BP 136/74; PULSE 75; RESP 16; TEMP 36.4; O2SAT 97
--- OUTSIDE RECORDS SUMMARY | 2025-02-13 14:28 | XMS_ITS | Clinical Summary ---
Author Organization [facility] Address [address] [place] [address] Phone Care Team Providers Care Hogshead Salvage Name Role Phone Austin Dkue DO Primary Care Provider [phone] Allergies No known active allergies Medications No known medications Active Problems Problem Noted Date Diagnosed Date Bilateral carpal tunnel syndrome 09/29/2017 Social History Tobacco Use Types Packs/Day Years Used Date Smoking Tobacco: Never Smokeless Tobacco: Never Alcohol Use Standard Drinks/Week Comments No 0 (1 standard drink = 0.6 oz pur e alcohol) Comments Unknown Sex and Gender Information Value Date Recorded Sex Assigned at Not on file Legal Sex Female 10:49 AM CDT Gender Identity Not on file Sexual Orientation Not on file Last Filed Vital Signs Vital Sign Reading Time Taken Comments Blood Pressure 135/67 10/28/2017 12:40 PM CDT Pulse 61 10/28/2017 12:40 PM CDT Temperature 36.7 C (98 F) 10/15/2017 2:15 PM CDT Respiratory Rate - - Oxygen Saturation 98% 10/15/2017 2:04 PM CDT Inhaled Oxygen Concentration - - Weight 69.9 kg (154 lb) 10/28/2017 12:40 PM CDT Height 162.6 cm (5' 4 ) 10/28/2017 12:40 PM CDT Body Mass Index 26.43 10/28/2017 12:40 PM CDT Plan of Treatment Health Maintenance Due Date Last Done Comments DTAP/TDAP/TD VACCINES (1 - Tdap) 1954 PNEUMOCOCCAL VACCINE 50+ YEARS (1 of 1 - PCV) 02/21/19 ZOSTER VACCINE (1 of 2) 1985 OSTEOPOROSIS SCREENING 02/22/2000 RSV VACCINE (60+ or ) (1 - 1-dose 75+ series) 2010 INFLUENZA VACCINE (#1) 2024 Insurance [facility] [employer] Medicare Part D Advance Directives For more information, please contact: [phone] * Full Code (Latest Code Status on File) Date Activated Date Inactivated Comments 10/15/2017 11:28 AM 10/15/2017 4:36 PM Care Teams Hogshead Salvage Relationship Specialty Start Date End Date Austin Duke DO [address] [place] [phone] PCP - General Family Practice 08/20/17
--- OUTSIDE RECORDS SUMMARY | 2025-02-13 14:28 | XMS_ITS | Patient Health Record ---
Author Organization [facility] Address [address] [facility] [address] Care Team Providers Care Poker Dealer Name Role Phone Abdi Montgomery Unavailable [phone] Allergies Allergen (clinical drug ingredient) Drug/Non Drug Allergy documented on EMR Reaction Allergy Type Onset Date Status No Known Drug Allergy Unknown Drug Allergy Active Substance with sulfonamide structure and antibacterial mechanism of action (substance) Sulfa Antibiotics Reaction 1:Hives Drug Allergy 05/07/2022 active Reason For Referral No Information Medications Medication SIG (Take, Route, Fr equency, Duration) Notes Start Date End Date Status Tylenol 325 MG Tablet 1 tablet as needed Orally every 4 hrs Active Vitamin D Active PreserVision AREDS A ctive Social History Tobacco Use: Social History Observation Description Date Details (start date - stop date) Never Smoker NA - NA Social History Drugs/Alcohol: Social Info Question Answer Notes Alcohol Screen (Audit-C) Did you have a drink containing alcohol in the past year? No Points 0 Interpretation Negative Drugs Have you used drugs other than those for medical reasons in the past 12 months? No Caffeine Intake: 2-3 cups per day Tobacco Use: Social Info Question Answer Notes xTobacco Use/Smoking Are you a nonsmoker Additional Details Category Social Info Options Details Drugs/Alcohol: Do you smoke marijuana? De nies Do you drink alcohol? No Migrated Social History Migrated Social History History of tobacco use : , Smoking Status : Never used tobacco Problems Problem Type SNOMED Code ICD Code Onset Dates Problem Status W/U Status Risk Notes Problem Closed nondispla teo intertrochanteric fracture of left femur with routine healing, subsequent encounter (S72.145D) Active confirmed Encounters Encounter Location Date Provider Diagnosis [facility] [address] [place] [address] 12/20/2024 Gisell Patton Plan Of Treatment No Information Insurance Providers Payer Name Payer Address Payer Phone Subscriber Number Group Number Insured Name Patient Relationship to Insured Coverage Start Date Coverage End Date [employer] [address] [place] [phone] [id number] Yoselin Lee Self - patient is the insured 2 Medical (General) History Medical History History ICD Code Measles Chicken Pox Pneumonia Arthritis Bladder Infections Hernia Bronchitis Cataracts GERD Surgical History Surgery Date(Month/Year) Fractured Hip 2007 Hernia 1969 1973 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
--- OUTSIDE RECORDS SUMMARY | 2025-02-13 14:28 | XMS_ITS | Clinical Summary ---
Author Organization [facility] Address [address] [facility] Attn: Epic Prelude ADT CHANDRAKANT CHANEY [address] Care Team Providers Care Costing Manager Name Role Phone Austin Duke DO Primary Care Provider [phone] Allergies No known active allergies Active Problems Problem Noted Date Diagnosed Date Bilateral carpal tunnel syndrome 09/29/2017 Social History Tobacco Use Types Packs/Day Years Used Date Smoking Tobacco: Never Smokeless Tobacco: Never Alcohol Use Standard Drinks/Week Comments No 0 (1 standard drink = 0.6 oz pur e alcohol) Comments Unknown Sex and Gender Information Value Date Recorded Sex Assigned at Not on file Legal Sex Female 10:01 AM UTILIZATION REVIEW RN Gender Identity Not on file Sexual Orientation Not on file Last Filed Vital Signs Vital Sign Reading Time Taken Comments Blood Pressure 135/67 10/28/2017 12:40 PM CDT Pulse 61 10/28/2017 12:40 PM CDT Temperature 36.7 C (98 F) 10/15/2017 2:15 PM CDT Respiratory Rate - - Oxygen Saturation - - Inhaled Oxygen Concentration - - Weight 69.9 kg (154 lb) 10/28/2017 12:40 PM CDT Height 162.6 cm (5' 4 ) 10/28/2017 12:40 PM CDT Body Mass Index 26.43 10/28/2017 12:40 PM CDT Plan of Treatment Health Maintenance Due Date Last Done Comments DTAP/TDAP/TD VACCINES (1 - Tdap) 1954 PNEUMOCOCCAL VACCINE 50+ YEARS (1 of 1 - PCV) 02/21/19 85 ZOSTER VACCINE (1 of 2) 1985 OSTEOPOROSIS SCREENING 02/22/2000 RSV VACCINE (60+ or ) (1 - 1-dose 75+ series) 2010 INFLUENZA VACCINE (#1) 2024 Insurance * Guarantor: JOHN MAHER Account Type Relation to Patient Date of Phone Billing Address Personal/Family [address] [place], [place] [id number] [employer] Medicare Part D Care Teams Costing Manager Relationship Specialty Start Date End Date Austin Duke DO [address] [place] [address] PCP - General Family Practice 08/20/17
--- NOTE | 2025-02-13 14:32 | XRR_ITS ---
PROCEDURE INFORMATION: Exam: XR Left Wrist Exam date and time: 02/13/2025 2:35 PM Age: 89 years old Clinical indication: Pain; Wrist; Left; Additional info: Lt wrist pain post fall TECHNIQUE: Imaging protocol: Radiologic exam of the left wrist. Views: 3 or more views. COMPARISON: No relevant prior studies available. FINDINGS: Bones/joints: Joint space narrowing with some contiguous articular sclerosis is appreciated along the lateral carpometacarpal and midcarpal regions. Slight degenerative changes also suspected at the radiocarpal MCP joint of the thumb. There are no distinct linear areas of decreased density seen as might suggest the presence of the fracture. Trabecular architecture is preserved. Soft tissues: The lateral view suggests some soft tissue swelling about the wrist. Also observed is atherosclerotic calcification of the ulnar artery. XR/XR wrist LT min 3V* [id number] IMPRESSION: 1. No acute osseous plain-film findings. 2. Osteoarthritic/degenerative changes involving the lateral wrist/hand regions, as described. 3. Mild soft tissue swelling about the wrist suggestive of ligamentous injury. 4. Osteopenia.
--- NOTE | 2025-02-13 14:35 | CTR_ITS ---
PROCEDURE INFORMATION: Exam: CT Head Without Contrast Exam date and time: 02/13/2025 2:47 PM Age: 89 years old Clinical indication: Injury or trauma; Fall; Blunt trauma (contusions or hematomas) TECHNIQUE: Imaging protocol: Computed tomography of the head without contrast. Radiation optimization: All CT scans at this facility use at least one of these dose optimization techniques: automated exposure control; mA and/or kV adjustment per patient size (includes targeted exams where dose is matched to clinical indication); or iterative reconstruction. COMPARISON: CT head wo con* [id number] 03/29/2021 18:55 RADIATION DOSE METRICS: Total DLP (mGy-cm): 1111.84 Other radiation dose metrics: Mild patchy periventricular and deep white matter decreased density seen in both cerebral hemispheres. Midline is intact. Punctate bilateral basal ganglia calcifications are seen and in the range of normal. Beam hardening artifact obscures resolution through the posterior fossa structures. No hemorrhage. Unremarkable white matter. No mass effect. FINDINGS: Brain: Normal. No hemorrhage. Unremarkable white matter. No mass effect. Cerebral ventricles: Ventricles demonstrate normal size shape and configuration and are felt to be in proportion to the degree of widening of the sulci, sylvian fissures and basilar cisterns. Moderate to marked atherosclerotic calcifications are seen involving the vertebrobasilar system marked atherosclerotic calcifications are seen the bilateral supraclinoid ICA vessels Paranasal sinuses: Visualized sinuses are unremarkable. No fluid levels. Mastoid air cells: Visualized mastoid air cells are well aerated. Orbital cavities: Bilateral cataract surgery. Bones: Unremarkable. No acute fracture. Soft tissues: Left frontal scalp hematoma. Other findings: Mild ceruminous densities are seen partially occluding the left external auditory canal/EAC. CT/CT head wo con* [id number] IMPRESSION: 1. No acute intracranial head CT findings identified. 2. Left frontal scalp hematoma. 3. Atrophy/involutional changes of aging with components of chronic small-vessel disease. 4. Prominent atherosclerotic calcifications as described. 5. Partial occlusion of the left EAC.
--- NOTE | 2025-02-13 14:36 | W.ED.FALL ---
HPI - Fall General: Chief Complaint: Fall Stated Complaint: fell and hit head, left shoulder, right knee pain Time Seen by Provider: 02/13/25 14:24 Source: patient Mode of arrival: ambulatory Limitations: no limitations History of Present Illness: 89-year-old female states she was walking down steps just prior to arrival and tripped and fell. States she did hit her head has a hematoma left head has a mild headache states she also has left wrist and thumb pain along with left shoulder pain states she landed on her right knee and has right knee pain denies any hip pain denies any neck pain she has been ambulatory since the event. Associated symptoms-after fall: Reports headache(s); Denies abdominal pain, chest pain or neck pain Related Data Home Medications ?Medication ?Instructions ?Recorded ?Confirmed acetaminophen 500 mg tablet 500 - 1,000 mg PO Q6H PRN Pain 10/07/22 02/13/25 calcium carbonate 500 mg PO DAILY@12 10/07/22 02/13/25 cholecalciferol (vitamin D3) 25 1,000 unit PO BID 10/07/22 02/13/25 mcg (1,000 unit) tablet (Vitamin D3) vit C 250 mg-vit E 90 mg-zinc 40 1 tab PO BID 10/07/22 02/13/25 mg-copper 1 ie-tnvurl-tilyws capsule (PreserVision AREDS-2) ibuprofen 200 mg tablet 400 mg PO Q6H PRN Pain 02/13/25 02/13/25 Allergies Allergy/AdvReac Type Severity Reaction Status Date / Time Sulfa (Sulfonamide Allergy Severe ADR-Nausea Verified 02/13/25 14:26 Antibiotics) methotrexate Allergy Unknown Verified 02/13/25 14:26 Review of Systems Card: Denies: chest pain GI: Denies: abdominal pain Musc: Reports: extremity pain; Denies: neck pain or back pain Neuro: Reports: headache(s) PFSH ED PFSH: Medical History 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 w/ reported benign pathology Cholelithiases Osteoporosis Nodular thyroid disease Osteoarthritis Surgical History History of total right hip arthroplasty History of inguinal hernia repair History of Family History Other Family history non-contributory Social History Smoking and tobacco/nicotine status: never used tobacco/nicotine Alcohol intake: never Substance/Drug Use: never Lives independently: Yes Number of children: 4 Number of grandchildren: 6 Special divya needs: No Agree to transfusion: Yes Physical Exam Const: COMMON NORMALS: no acute distress, patient oriented x3 and healthy appearing HENMT: COMMON NORMALS: normocephalic HEAD & SCALP: normocephalic OTHER: Hematoma to left forehead Eye: COMMON NORMALS: Equal, round and reactive pupils present and EOMs intact bilaterally PUPIL: Yes Equal, round and reactive pupils present Neck/C-Spine: COMMON NORMALS: full ROM and supple CERVICAL SPINE: No pain with cervical ROM and No Cervical spine tenderness Chest: COMMONS NORMALS: normal inspection of the chest and normal palpation of entire chest wall Resp: COMMON NORMALS: normal respiratory effort, No retractions, No use of accessory muscles and clear to auscultation bilaterally AUSCULTATION: clear to auscultation bilaterally Cardio: COMMON NORMALS: regular rate, regular rhythm and No murmurs present (Cardio) RATE: regular rate RHYTHM: regular rhythm Extremity: COMMON NORMALS: full ROM NARRATIVE EXTREMITY EXAM: Tenderness to base of left thumb and wrist no obvious deformities mild tenderness to left shoulder has bruising to right knee with tenderness Neuro: COMMON NORMALS: patient oriented x3, moves all extremities and no focal motor deficits Psych: COMMON NORMALS: mental status grossly normal, Normal thought process present and cooperative THOUGHT PROCESS: Normal thought process present Skin: COMMON NORMALS: no rashes or lesions noted and no wounds GENERAL SKIN EXAM: no rashes or lesions noted Course Vital Signs: Vital signs: Vital Signs Temperature 97.6 F 02/13/25 14:26 Pulse Rate 75 02/13/25 14:26 Respiratory Rate 16 02/13/25 14:26 Blood Pressure 136/74 02/13/25 14:26 Pulse Oximetry 97 02/13/25 14:26 MDM - Fall Medical Decision Making Patient presents here after a fall with closed head injury along with contusion to right knee and left hand x-ray CT shows no acute findings. I did go over the x-rays and CT with patient she is to follow-up with her PCP return if worsening she understands agrees to plan. Medical Records I reviewed the patient's medical records. Lab Data I reviewed the patient's lab results. Radiology Impressions Knee X-Ray 02/13/25 14:24 IMPRESSION: 1. Mild osteoarthritic/degenerative changes with no acute osseous plain-film findings. 2. Prominent prepatellar/anterior knee swelling consistent with trauma/hematoma. 3. Osteopenia. 4. Atherosclerotic calcifications of the femoral and popliteal arteries. Shoulder X-Ray 02/13/25 14:24 IMPRESSION: 1. No acute osseous plain-film findings. 2. Osteoarthritic/degenerative changes of the AC joint. 3. Osteopenia. Wrist X-Ray 02/13/25 14:32 IMPRESSION: 1. No acute osseous plain-film findings. 2. Osteoarthritic/degenerative changes involving the lateral wrist/hand regions, as described. 3. Mild soft tissue swelling about the wrist suggestive of ligamentous injury. 4. Osteopenia. Head CT 02/13/25 14:35 IMPRESSION: 1. No acute intracranial head CT findings identified. 2. Left frontal scalp hematoma. 3. Atrophy/involutional changes of aging with components of chronic small-vessel disease. 4. Prominent atherosclerotic calcifications as described. 5. Partial occlusion of the left EAC. All radiology interpretation(s) finalized by discharge Discharge Plan Discharge Patient Disposition: Home Clinical Impression: Closed head injury, Contusion of right knee, Contusion of hand, left, Fall Condition: Stable Prescriptions: No Action acetaminophen [Tylenol Ex Str Rapid Release] 500 mg Tablet 500 - 1,000 mg PO Q6H PRN (Reason: Pain) calcium carbonate [Calcium 500] 500 mg calcium (1,250 mg) Tablet 500 mg PO DAILY@12 cholecalciferol (vitamin D3) [Vitamin D3] 25 mcg (1,000 unit) Tablet 1,000 unit PO BID PreserVision AREDS-2 250-90-40-1 mg Capsule 1 tab PO BID ibuprofen 200 mg Tablet 400 mg PO Q6H PRN (Reason: Pain) Discharge Orders: Discharge ED (Routine); Ordered 02/13/25 Ordered By: Katherine Scott Referrals: Chris Lizama MD [Primary Care Provider, Family Practice] - 4-7 days Discharge Diet: Advance as tolerated Discharge Activity: Resume usual activity Patient Instructions: Head Injury (ED), Contusion in Adults (ED) Print Language: Canadian Coding Level of Care Code ED Child Life Therapist for Jana Madison
--- NOTE | 2025-02-13 14:57 | PC.PHAR ---
Pt had an order for Fosamax 70mg once weekly 12/14/24-pt read the side effects and never picked up.
[2025-02-13] MEDS: HYDROcodone-acetaminophen 5-325 mg Tablet 1 TAB PO (15:10)
[2025-02-13 15:30] VITALS: BP 126/57; PULSE 68; O2SAT 93
== END 2025-02-13 15:32 | disposition home or self-care (01) ==
PROVIDERS: Emergency Provider Emergency Medicine; PCP Family Medicine
DX: S80.01XA Contusion of right knee, initial encounter (principal); S60.222A Contusion of left hand, initial encounter; W10.9XXA Fall (on) (from) unspecified stairs and steps, initial encounter
CPT/HCPCS: 70450; 73030; 73110; 73562; 99284; J9999